=== PATIENT | male | born 1970 | race Caucasian/White ===

== ENCOUNTER 2020-02-21 14:43 | Inpatient (IN) | payer MEDICARE, BC ==
[~2020-02-21] VITALS: Ht 167.6 cm; Wt 73.0 kg
[~2020-02-21 14:43] MED LIST: AMLO5TAB15 PO; ESCI20TA51 PO; MAGN400T40 PO; OMEP20CA74 OR; POTA1080 PO; PROP80CA40 PO; TAMS0.4C36 PO
[2020-02-21 15:27] LABS: Basophils # (auto) 0.1 10 ^3/uL (0-0.2); Basophils % (auto) 1.2 % (0.0-2.0); Eosinophils # (auto) 0.5 10 ^3/uL (0-0.8); Hematocrit 49.3 % (41.0-53.0); Hemoglobin 16.5 g/dL (13.5-17.5); Lymphocytes # (auto) 1.6 10 ^3/uL (0.4-5.4); Lymphocytes % (auto) 13.8 % (10.0-50.0); Mean Corpuscular Hemoglobin 29.1 pg (28.0-32.0); Mean Corpuscular Hgb Conc. 33.5 g/dL (32.0-36.0); Mean Corpuscular Volume 86.7 fL (80.0-100.0); Monocytes # (auto) 0.9 10 ^3/uL (0-1.3); Monocytes % (auto) 7.7 % (0.0-12.0); Neutrophils # (auto) 8.4 10 ^3/uL (1.6-8.6); Neutrophils % (auto) 73.3 % (37.0-80.0); Nucleated Red Blood Cells % 0.1 %; Platelet Count (auto) 359 10^3/uL (140-450); Red Blood Cells 5.69 10^6/uL (4.5-5.90); White Blood Cell 11.4 10^3/uL (4.4-10.8)
[2020-02-21 15:45] LABS: Albumin 3.8 g/dL (3.4-5.0); Anion Gap 10 (5-15); Blood Urea Nitrogen 22 mg/dL (7-18); Calcium 8.7 mg/dL (8.5-10.1); Carbon Dioxide 22 mmol/L (21-32); Chloride 105 mmol/L (98-107); Glucose 118 mg/dL (74-106); Magnesium 2.2 mg/dL (1.6-2.6); Potassium 3.3 mmol/L (3.5-5.1); Sodium 137 mmol/L (136-145)
[2020-02-21 15:50] LABS: Alanine Aminotransferase 46 U/L (16-61); Alkaline Phosphatase 101 U/L (45-117); Aspartate Aminotransferase 25 U/L (15-37); BUN/Creatinine Ratio 15.1; Bilirubin, Total 0.6 mg/dL (0.2-1.0); GFR African American 66 mL/min; GFR Non-African American 55 mL/min; Total Protein 7.5 g/dL (6.4-8.2)
[2020-02-21 16:45] LABS: INR 1.02 (0.9-1.15); Partial Thromboplastin Time 32.3 sec (23.64-32.05)
[2020-02-21] MEDS ORDERED: ONDANSETRON HCL 4 MG/2 ML VIAL IV PRN (20:30)
[2020-02-21] MEDS ORDERED: ACETAMINOPHEN 325 MG TAB PO PRN (20:30)
[2020-02-21] MEDS ORDERED: MORPHINE SULF INJ 2 MG/ML SYRINGE 1ML IV PRN (20:30)
[2020-02-21] MEDS ORDERED: NITROGLYCERIN 0.4 MG SL TAB SL PRN ×2 (20:30)
[2020-02-21] MEDS ORDERED: MORPHINE SULFATE 4 MG/ML SYR/VIAL IV PRN (20:30)
[2020-02-21] MEDS ORDERED: ZOLPIDEM TARTRATE 5 MG TAB PO PRN (20:30)
[2020-02-21] MEDS: SODIUM CHLORIDE 0.9% 1,000 ML IV SCH (21:22)
[2020-02-21] MEDS: CARVEDILOL 3.125 MG TAB PO SCH (21:23)
[2020-02-21] MEDS ORDERED: ATORVASTATIN 20 MG TAB PO SCH (22:00)
[2020-02-21 23:30] VITALS: BP_SYST 105; BP_SYST 109; BP_DIAS 60; BP_DIAS 69
[2020-02-22 05:00] VITALS: BP_SYST 105; BP_SYST 97; BP_DIAS 57; BP_DIAS 64
[2020-02-22 07:08] LABS: Basophils # (auto) 0.1 10 ^3/uL (0-0.2); Basophils % (auto) 0.8 % (0.0-2.0); Eosinophils # (auto) 0.5 10 ^3/uL (0-0.8); Eosinophils % (auto) 6.6 % (0.0-7.0); Hematocrit 45.2 % (41.0-53.0); Hemoglobin 14.9 g/dL (13.5-17.5); Lymphocytes # (auto) 1.9 10 ^3/uL (0.4-5.4); Lymphocytes % (auto) 26.4 % (10.0-50.0); Mean Corpuscular Hemoglobin 29.2 pg (28.0-32.0); Mean Corpuscular Volume 88.5 fL (80.0-100.0); Monocytes % (auto) 13.7 % (0.0-12.0); Neutrophils # (auto) 3.7 10 ^3/uL (1.6-8.6); Neutrophils % (auto) 52.5 % (37.0-80.0); Platelet Count (auto) 260 10^3/uL (140-450); Red Blood Cells 5.11 10^6/uL (4.5-5.90); Red Cell Distribution Width 13.8 % (11.8-14.3); White Blood Cell 7.1 10^3/uL (4.4-10.8)
[2020-02-22 07:35] LABS: Potassium 3.7 mmol/L (3.5-5.1)
[2020-02-22 07:42] LABS: BUN/Creatinine Ratio 18.5; Calcium 8.3 mg/dL (8.5-10.1)
[2020-02-22 09:00] VITALS: BP 126/69
[2020-02-22] MEDS: CARVEDILOL 3.125 MG TAB PO SCH (09:47)
[2020-02-22] MEDS: SODIUM CHLORIDE 0.9% 1,000 ML IV SCH (09:50)
[2020-02-22] MEDS ORDERED: LOSARTAN POTASSIUM 25 MG TAB PO SCH (10:00)
[2020-02-22] MEDS ORDERED: CLOPIDOGREL BISULFATE 75 MG TAB PO SCH (10:00)
[2020-02-22] MEDS ORDERED: DOCUSATE SOD 100 MG CAP PO SCH (10:00)
[2020-02-22] MEDS ORDERED: ASPirin 81 mg TAB PO SCH (10:00)
[2020-02-22 13:00] VITALS: BP 120/81
[2020-02-22 16:22] VITALS: BP 120/81
[2020-02-22 17:00] VITALS: BP 105/75
== END 2020-02-22 18:14 | disposition home or self-care (01) | DRG 684 ==
LOC: ER 14:43 → TELE 14:44 → TELE-WESTW 22:57
PROVIDERS: ADMIT Hospitalist; ATTEND Hospitalist
DX: I12.9 Hypertensive chronic kidney disease with stage 1 through stage 4 chronic kidney disease, or unspecified chronic kidney disease (principal); N18.3 Chronic kidney disease, stage 3 (moderate); E87.6 Hypokalemia; F32.9 Major depressive disorder, single episode, unspecified; E78.5 Hyperlipidemia, unspecified; Z79.899 Other long term (current) drug therapy; Z88.8 Allergy status to other drugs, medicaments and biological substances; Z87.442 Personal history of urinary calculi; Z82.49 Family history of ischemic heart disease and other diseases of the circulatory system
CPT/HCPCS: 36415; 71045; 80048; 80053; 80061; 83735; 83880; 84443; 84484; 85025; 85379; 85610; 85730; 93005; G0378

== ENCOUNTER 2021-12-15 11:14 | Emergency (ER) | payer BC, MEDICARE ==
[~2021-12-15] VITALS: Ht 167.6 cm; Wt 72.6 kg
[~2021-12-15 11:14] MED LIST changes: +AMLO-489 PO; -AMLO5TAB15 PO; +ESCI-34 PO; -ESCI20TA51 PO
[2021-12-15] MEDS ORDERED: cloNIDine HCL 0.1 MG TAB PO ONE (12:00)
[2021-12-15 12:28] LABS: Basophils # (auto) 0.1 10 ^3/uL (0-0.2); Basophils % (auto) 0.6 % (0.0-2.0); Eosinophils # (auto) 0.3 10 ^3/uL (0-0.8); Eosinophils % (auto) 2.8 % (0.0-7.0); Hematocrit 41.5 % (41.0-53.0); Hemoglobin 13.9 g/dL (13.5-17.5); Lymphocytes # (auto) 0.8 10 ^3/uL (0.4-5.4); Lymphocytes % (auto) 6.9 % (10.0-50.0); Mean Corpuscular Hgb Conc. 33.5 g/dL (32.0-36.0); Mean Corpuscular Volume 83.6 fL (80.0-100.0); Monocytes # (auto) 1.3 10 ^3/uL (0-1.3); Monocytes % (auto) 10.9 % (0.0-12.0); Neutrophils # (auto) 9.3 10 ^3/uL (1.6-8.6); Neutrophils % (auto) 78.8 % (37.0-80.0); Nucleated Red Blood Cells % 0.1 %; Red Blood Cells 4.97 10^6/uL (4.5-5.90); Red Cell Distribution Width 14.5 % (11.8-14.3); White Blood Cell 11.8 10^3/uL (4.4-10.8)
[2021-12-15 12:47] LABS: Albumin 3.3 g/dL (3.4-5.0); BUN/Creatinine Ratio 15.2; Calcium 8.8 mg/dL (8.5-10.1); Magnesium 1.7 mg/dL (1.6-2.6); Potassium 3.6 mmol/L (3.5-5.1)
[2021-12-15 12:49] LABS: Urine Bacteria FEW /hpf (None Seen); Urine Blood Negative /uL (Negative); Urine Mucus FEW (None Seen); Urine Specific Gravity 1.024 (1.001-1.035); Urine Sperm PRESENT /hpf (None Seen); Urine WBC 1 /hpf (0 - 3)
[2021-12-15 12:52] LABS: Bilirubin, Total 0.4 mg/dL (0.2-1.0); Total Protein 6.8 g/dL (6.4-8.2)
[2021-12-15 13:09] VITALS: BP 123/83
== END 2021-12-15 13:27 | disposition home or self-care (01) ==
LOC: ER 11:14
DX: I16.0 Hypertensive urgency (principal); K50.90 Crohn's disease, unspecified, without complications; I10 Essential (primary) hypertension; E78.5 Hyperlipidemia, unspecified; F12.10 Cannabis abuse, uncomplicated; Z88.8 Allergy status to other drugs, medicaments and biological substances
CPT/HCPCS: 36415; 71045; 80053; 81001; 83735; 84484; 85025; 93005

== ENCOUNTER 2021-12-17 09:56 | Emergency (ER) | payer BC ==
[~2021-12-17] VITALS: Ht 167.6 cm; Wt 72.6 kg
[2021-12-17 11:08] VITALS: BP 139/98
[2021-12-17] MEDS ORDERED: TRIA50TA2 PO (11:10)
== END 2021-12-17 11:19 | disposition home or self-care (01) ==
LOC: ER 09:56
DX: I10 Essential (primary) hypertension (principal); F12.10 Cannabis abuse, uncomplicated; E78.5 Hyperlipidemia, unspecified; Z87.442 Personal history of urinary calculi

== ENCOUNTER 2025-03-20 09:25 | Inpatient (IN) | payer OTHER, MEDICARE, BC ==
[~2025-03-20] VITALS: Ht 167.6 cm; Wt 87.0 kg
[~2025-03-20 09:25] MED LIST changes: -AMLO-489 PO; +AMLO1TAB22 PO; -ESCI-34 PO; +ESCI1TAB37 PO; -TAMS0.4C36 PO; +TAMS0.4C39 PO; +TRIA75TA11 PO
[2025-03-20 10:05] VITALS: PULSE 105; RESP 14; O2SAT 97
[2025-03-20] MEDS: LABETALOL HCL 20 MG/4 ML VL IV ONE (10:08)
--- NOTE | 2025-03-20 10:08 | ED.PDOC ---
History of Present Illness HPI Comments 54 y.o male with PMHx of HTN and Crohn's, presents to the ED for an evaluation of high blood pressure associated with a generalized headache and tingling sensation to the left hand x 1 day. Patient reports being seen [facility] yesterday, was told blood pressure was elevated and states today upon waking up, pressure increased to 220 systolic. Patient denies any chest pain, SOB, nausea, vomiting, chills, or fevers. Patient's blood pressure reads 176/115 upon triage assessment. Patient denies tobacco or substance use. Occasional use of alcohol. Chief Complaint: High Blood Pressure Time Seen by MD: 09:42 Primary Care Provider: MADDIE Minor Notes: Nurses Notes, Medications, Allergies Allergies: Coded Allergies: Mercaptopurine (Verified Allergy, Unknown, 02/21/20) Home Meds Active Scripts Hydrochlorothiazide W/Triamter (Hctz/Triamterene) 1 Tab Tab, 1 TAB PO DAILY for 20 Days, #20 TAB Prov:LUIS A TADEO 12/17/21 Reported Medications Amlodipine Besylate (Amlodipine Besylate) 5 Mg Tab, 1 TAB PO DAILY, #30 TAB 5 Refills 08/02/16 Propranolol Hcl (Inderal La) 80 Mg Cap, 80 MG PO DAILY, #1 CAP 08/02/16 Tamsulosin Hcl (Tamsulosin Hcl) 0.4 Mg Cap, 1 CAP PO DAILY, #30 CAP 1 Refill 08/02/16 Potassium Citrate (Potassium Citrate) 1,080 Mg Tab, 2 TAB PO TID, #360 TAB 2 Refills 08/02/16 Magnesium Oxide (MAGNESIUM OXIDE) 400 Mg Tab, 1 TAB PO BID, #60 TAB 2 Refills 08/02/16 Escitalopram Oxalate (ESCITALOPRAM OXALATE) 20 Mg Tab, 20 MG PO, TAB 08/02/16 Omeprazole (PRILOSEC) 20 Mg Cap, 20 MG OR DAILY, CAP 08/02/16 Information Source: Patient Mode of Arrival: Ambulatory Severity: Moderate Timing: Days (1) Duration: Since onset Past Medical History PAST MEDICAL HISTORY: Anxiety, Depression, High Lipids, HTN, Kidney Stones Surgical History: Appendectomy Family History Family History: Family hx of Cancer, Family hx of heart nuria, Family hx of HTN Social History Smoker: Non-Smoker Alcohol: Rarely Drugs: Marijuana Lives In: Home Constitutional: denies: chills, diaphoresis, fatigue, fever, malaise, sweats, weakness, others EENTM: denies: blurred vision, double vision, ear bleeding, ear discharge, ear drainage, ear pain, ear ringing, eye pain, eye redness, hearing loss, mouth pain, mouth swelling, nasal discharge, nose bleeding, nose congestion, nose pain, photophobia, tearing, throat pain, throat swelling, voice changes, others Respiratory: denies: cough, hemoptysis, orthopnea, SOB at rest, shortness of breath, SOB with excertion, stridor, wheezing, others Cardiovascular: denies: chest pain, dizzy spells, diaphoresis, Dyspnea on exertion, edema, irregular heart beat, left arm pain, lightheadedness, palpitations, PND, syncope, others Gastrointestinal: denies: abdomen distended, abdominal pain, blood streaked bowels, constipated, diarrhea, dysphagia, difficulty swallowing, hematemesis, me elly, nausea, poor appetite, poor fluid intake, rectal bleeding, rectal pain, vomiting, others Genitourinary: denies: burning, dysuria, flank pain, frequency, hematuria, incontinence, penile discharge, penile sore, pain, testicle pain, testicle swelling, urgency, others Neurological: reports: headache, tingling (left hand); denies: dizziness, fainting, left sided numbness, left sided weakness, numbness, paresthesia, pre-existing deficit, right sided numbness, right sided weakness, seizure, speech problems, tremors, weakness, others Musculoskeletal: denies: back pain, gout, joint pain, joint swelling, muscle pain, muscle stiffness, neck pain, others Integumetry: denies: bruises, change in color, change in hair/nails, dryness, laceration, lesions, lumps, rash, wounds, others Allergic/Immunocompromised: denies: Difficulty Healing, Frequent Infections, Hives, Itching, others Hematologic/Lymphatic: denies: anemia, blood clots, easy bleeding, easy bruising, swollen glands, others Endocrine: denies: excessive hunger, excessive sweating, excessive thirst, excessive urination, flushing, intolerance to cold, intolerance to heat, unexplained weight gain, unexplained weight loss, others Psychiatric: denies: anxiety, bipolar disorder, depression, hopeless, panic disorder, schizophrenia, sleepless, suicidal, others All Other Systems: Reviewed and Negative Physical Exam General Appearance: Moderate Distress HEENT: Normal ENT Inspection, Pharynx Normal, TMs Normal Neck: Full Range of Motion, Non-Tender, Normal, Normal Inspection Respiratory: Chest Non-Tender, Lungs Clear, No Accessory Muscle Use, No Respiratory Distress, Normal Breath Sounds Cardiovascular: No Edema, No JVD, No Murmur, No Gallop, Normal Peripheral Pulses, Tachycardia Breast Exam: Deferred Gastrointestinal: No Organomegaly, Non Tender, No Pulsatile Mass, Normal Bowel Sounds, Soft Genitalia: Deferred Pelvic: Deferred Rectal: Deferred Extremities: No calf tenderness, Normal capillary refill, Normal inspection, Normal range of motion, Non-tender, No pedal edema Musculoskeletal : Apperance: Normal 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 Was a procedure done?: No EKG EKG : Cardiac Rhythm: ST Differential Dx Considerations may include: Hypertension Crisis, Tension headaches, Migraine, Clustered Headache, Anxiety, Hypertensive Encephalopathy, TIA, CVA X-Ray, Labs, Meds, VS Vital Signs Date Time Temp Pulse Resp B/P (MAP) Pulse Ox O2 Delivery O2 Flow Rate FiO2 03/20/25 10:08 105 137/91 03/20/25 10:05 105 14 97 Room Air* 0 21 03/20/25 10:05 98.0 105 14 137/91 (106) 97 98.0 03/20/25 09:55 107 03/20/25 09:43 98.0 115 18 154/113 (127) 95 98.0 Lab Test 03/20/25 10:12 Range/Units White Blood Count 15.5 H 4.4-10.8 10^3/uL Red Blood Count 4.97 4.5-5.90 10^6/uL Hemoglobin 15.3 13.5-17.5 g/dL Hematocrit 44.2 41.0-53.0 % Mean Corpuscular Volume 89.1 80.0-100.0 fL Mean Corpuscular Hemoglobin 30.9 28.0-32.0 pg Mean Corpuscular Hemoglobin Concent 34.7 32.0-36.0 g/dL Red Cell Distribution Width 14.3 11.8-14.3 % Platelet Count 335 140-450 10^3/uL Mean Platelet Volume 8.1 6.9-10.8 fL Neutrophils (%) (Auto) 87.9 H 37.0-80.0 % Lymphocytes (%) (Auto) 2.7 L 10.0-50.0 % Monocytes (%) (Auto) 9.0 0.0-12.0 % Eosinophils (%) (Auto) 0.3 0.0-7.0 % Basophils (%) (Auto) 0.1 0.0-2.0 % Neutrophils # (Auto) 13.7 H 1.6-8.6 10 ^3/uL Lymphocytes # (Auto) 0.4 0.4-5.4 10 ^3/uL Monocytes # (Auto) 1.4 H 0-1.3 10 ^3/uL Eosinophils # (Auto) 0 0-0.8 10 ^3/uL Basophils # (Auto) 0 0-0.2 10 ^3/uL Nucleated Red Blood Cells 0.0 % Sodium Level 140 136-145 mmol/L Potassium Level 3.9 3.5-5.1 mmol/L Chloride Level 108 H 98-107 mmol/L Carbon Dioxide Level 23 20-31 mmol/L Anion Gap 9 5-15 Blood Urea Nitrogen 10 9-23 mg/dL Creatinine 0.91 0.700-1.30 mg/dL Glomerular Filtration Rate Calc 100 >90 mL/min BUN/Creatinine Ratio 11.0 10.0-20.0 Serum Glucose 97 74-106 mg/dL Calcium Level 10.7 H 8.7-10.4 mg/dL Troponin I High Sensitivity 8 </=54 ng/L Patient alert. Complaining of feeling weak. Blood pressure elevated. Vitals stable. WBC slightly elevated. Saturation pristine on room air. Was given labetalol. EKG reviewed does show tachycardia. Explained to the patient. Continue monitoring. Time of 1ST Reevaluation: 10:07 Reevaluation 1ST: Unchanged Patient Education/Counseling: Diagnosis, Treatment, Prognosis Family Education/Counseling: Diagnosis, Treatment, Prognosis Departure 1 Departure Time of Disposition: 11:18 Impression: Primary Impression: Hypertensive emergency Disposition: 09 ADMITTED INPATIENT Admit to: Med Surg Condition: Guarded Critical Care Note Critical Care Time?: Yes (90 min-critical care time only) Critical care comment: Hypotension continue monitor Stability Stability form required: No I personally scribed for MATTEO NICHOLAS MD ([email or web address]) on 03/20/25 at 10:08. Electronically submitted by Cari Carpenter ([facility]). MATTEO NICHOLAS MD Mar 20, 2025 10:08
--- NOTE | 2025-03-20 10:16 | ECG ---
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
[2025-03-20 10:23] LABS: Basophils # (auto) 0 10 ^3/uL (0-0.2); Basophils % (auto) 0.1 % (0.0-2.0); Eosinophils # (auto) 0 10 ^3/uL (0-0.8); Eosinophils % (auto) 0.3 % (0.0-7.0); Hematocrit 44.2 % (41.0-53.0); Hemoglobin 15.3 g/dL (13.5-17.5); Lymphocytes # (auto) 0.4 10 ^3/uL (0.4-5.4); Lymphocytes % (auto) 2.7 % (10.0-50.0); Mean Corpuscular Hemoglobin 30.9 pg (28.0-32.0); Mean Corpuscular Hgb Conc. 34.7 g/dL (32.0-36.0); Mean Corpuscular Volume 89.1 fL (80.0-100.0); Monocytes # (auto) 1.4 10 ^3/uL (0-1.3); Neutrophils # (auto) 13.7 10 ^3/uL (1.6-8.6); Neutrophils % (auto) 87.9 % (37.0-80.0); Platelet Count (auto) 335 10^3/uL (140-450); Red Blood Cells 4.97 10^6/uL (4.5-5.90); Red Cell Distribution Width 14.3 % (11.8-14.3); White Blood Cell 15.5 10^3/uL (4.4-10.8)
[2025-03-20 10:31] LABS: Potassium 3.9 mmol/L (3.5-5.1); Sodium 140 mmol/L (136-145)
[2025-03-20 10:32] LABS: Anion Gap 9 (5-15); Carbon Dioxide 23 mmol/L (20-31)
[2025-03-20 10:37] LABS: Glucose 97 mg/dL (74-106)
[2025-03-20 10:38] LABS: Blood Urea Nitrogen 10 mg/dL (9-23)
[2025-03-20 10:39] LABS: Calcium 10.7 mg/dL (8.7-10.4); Chloride 108 mmol/L (98-107)
--- NOTE | 2025-03-20 12:02 | DVH ---
CHEST RADIOGRAPH Indication: r/o pna Technique: Single frontal view of the chest was obtained COMPARISON: CHEST PORTABLE on DOS: 12/15/21 FINDINGS: Lines and Tubes: None Lungs: Clear Pleura: No effusion. No pneumothorax. Cardiomediastinal contours: Unremarkable Bones: Unremarkable IMPRESSION: No acute disease.
[2025-03-20 12:08] LABS: Urine Bacteria None Seen /hpf (None Seen)
[2025-03-20 12:25] LABS: Urine Blood Negative /uL (Negative); Urine Clarity Clear (Clear); Urine Color Colorless (Yellow); Urine Protein, UAD Negative (Negative); Urine Specific Gravity 1.006 (1.001-1.035); Urine Squamous Epithelial Cell None Seen /hpf (<5); Urine Urobilinogen Normal (Negative); Urine WBC 1 /HPF (0-3)
[2025-03-20] MEDS: SODIUM CHLORIDE 0.9% 1,000 ML IV ONE (12:26)
[2025-03-20 12:32] LABS: Cannabinoid Screen, Urine Pos (NEGATIVE)
[2025-03-20 12:44] LABS: Amphetamine Screen, Urine Neg (NEGATIVE); Barbiturate Scree,Urine Neg (NEGATIVE); Benzodiazephine Screen, Urine Neg (NEGATIVE); Cocaine Screen, Urine Neg (NEGATIVE); Opiate Scree,Urine Neg (NEGATIVE); Phencyclidine Screen, Urine Neg (NEGATIVE)
[2025-03-20] MEDS ORDERED: LOSA-534 PO (13:06)
[2025-03-20] MEDS ORDERED: LAMO25TA27 PO (13:06)
[2025-03-20] MEDS ORDERED: ATOR20TA50 PO (13:06)
[2025-03-20] MEDS ORDERED: UPAD30TA PO (13:06)
[2025-03-20] MEDS ORDERED: ICOS1CAP3 PO (13:06)
[2025-03-20] MEDS ORDERED: ONDANSETRON HCL 4 MG/2 ML VIAL IV PRN (13:15)
[2025-03-20] MEDS ORDERED: NITROGLYCERIN 0.4 MG SL TAB SL PRN (13:15)
[2025-03-20] MEDS ORDERED: MORPHINE SULFATE 4 MG/ML SYR/VIAL IV PRN (13:15)
--- NOTE | 2025-03-20 13:20 | DVHHP2 ---
History of Present Illness Reason for Visit: High blood pressure History of Present Illness Torrey Mack is a 54-year-old male with past medical history of hypertension, hyperlipidemia, anxiety, depression, kidney stones, Crohn's, tonsillectomy, and lithotripsy who presents to the ED with a blood pressure this morning, headache, nausea, abdominal discomfort, left hand tingling, neck pain, chills, and shoulder pain x1 day. Patient states that the headache is 4/10 pressure-like and constant. Patient states that he checks his blood pressure regularly and states that his systolics was over 220s this morning. He states that he checks it on a regimen and [facility] He states that he is compliant with his medications. He also states that he occasionally drinks, quit smoking, but does use marijuana. Patient also reported that his neck pain and shoulder pain has been going on for 1 month. He states that he had seen a chiropractor to get it adjusted with no relief. Patient's Alisa at the bedside. She also reported that the patient has been having abdominal discomfort for a month. Patient denies any chest pain, fever, recent injury or trauma, recent ingestion of spoiled food, recent sick contacts, recent travels, shortness of breath, vomiting, or diarrhea. Cardiovascular: HTN, hyperipidemia Psych: Anxiety, Depression Past Medical History Nephrolithiasis Crohn's disease Past Surgical History: Other (Lithotripsy), Tonsillectomy Family History: Cancer, Hypertension, Other (Dad with heart disease and hypertension. Mom with leukemia cancer.) Smoke: Quit ALCOHOL: occassional Drugs: Marijuana Lives: with Family Domestic Violence: Neg Review of Systems Constitutional: Yes: Chills, Other (Headache) Gastrointestinal: Other (Abdominal discomfort) Allergies: Coded Allergies: Mercaptopurine (Verified Allergy, Unknown, 02/21/20) Medications Current Medications Medications Dose Ordered Sig/Delio Route Start Time Stop Time Status Last Admin Dose Admin Piperacillin Sod/ Tazobactam Sod 100 ml @ 25 mls/hr Q8HR IV 03/20/25 13:15 UNV Acetaminophen/ Hydrocodone Bitart 1 tab Q4HP PRN PO 03/20/25 13:15 UNV Ondansetron HCl 4 mg Q4HP PRN IV 03/20/25 13:15 UNV Acetaminophen 650 mg Q6HP PRN PO 03/20/25 13:15 UNV Morphine Sulfate 2 mg Q4HPRN PRN IV 03/20/25 13:15 UNV Nitroglycerin 0.4 mg Q5MINP PRN SL 03/20/25 13:15 UNV Morphine Sulfate 2 mg Q30M PRN IV 03/20/25 13:15 UNV Amlodipine Besylate 5 mg DAILY PO 03/21/25 10:00 UNV Tamsulosin HCl 0.4 mg DAILY PO 03/21/25 10:00 UNV Patient Own Medication 1 tab DAILY PO 03/21/25 10:00 UNV Patient Own Medication 1 tab BID PO 03/20/25 22:00 UNV Patient Own Medication 20 mg DAILY OR 03/21/25 10:00 UNV Patient Own Medication 80 mg DAILY PO 03/21/25 10:00 UNV Exam Vital Signs Vital Signs Date Time Temp Pulse Resp B/P (MAP) Pulse Ox O2 Delivery O2 Flow Rate FiO2 03/20/25 12:19 98.8 108 16 129/95 (106) 97 98.8 03/20/25 10:05 Room Air* 0 21 General Appearance: Alert, Oriented X3, Cooperative, mild distress HEENT: Atraumatic, PERRLA, EOMI, Mucous membr. moist/pink Respiratory: Normal air movement Cardiovascular: Normal S1, Normal S2 Abdominal: Normal bowel sounds, Soft Extremities: Normal pulses Skin: No significant lesion Neuro: Normal gait, Normal speech, Strength at 5/5 X4 ext, Normal tone, Sensation intact Psych/Mental Status: Mental status NL, Mood NL Labs/Xrays Labs Test 03/20/25 11:55 03/20/25 11:16 03/20/25 10:12 Range/Units Urine Color Colorless Yellow Urine Clarity Clear Clear Urine pH 5.0 5.0-9.0 Urine Specific Lucas 1.006 1.001-1.035 Urine Protein Negative Negative Urine Ketones Negative Negative Urine Blood Negative Negative /uL Urine Nitrite Negative Negative Urine Bilirubin Negative Negative Urine Urobilinogen Normal Negative mg/dL Urine Leukocyte Esterase Negative Negative /uL Urine RBC <1 0 - 3 /hpf Urine Microscopic WBC 1 0-3 /HPF Urine Squamous Epithelial Cells None seen <5 /hpf Urine Bacteria None seen None Seen /hpf Urine Glucose Normal Normal mg/dL Urine Opiates Screen Neg NEGATIVE Urine Fentanyl Screen Neg NEGATIVE Urine Barbiturates Screen Neg NEGATIVE Urine Phencyclidine Screen Neg NEGATIVE Urine Amphetamines Screen Neg NEGATIVE Urine Benzodiazepines Screen Neg NEGATIVE Urine Cocaine Screen Neg NEGATIVE Urine Cannabinoids Screen Pos NEGATIVE Troponin I High Sensitivity 12 </=54 ng/L White Blood Count 15.5 H 4.4-10.8 10^3/uL Red Blood Count 4.97 4.5-5.90 10^6/uL Hemoglobin 15.3 13.5-17.5 g/dL Hematocrit 44.2 41.0-53.0 % Mean Corpuscular Volume 89.1 80.0-100.0 fL Mean Corpuscular Hemoglobin 30.9 28.0-32.0 pg Mean Corpuscular Hemoglobin Concent 34.7 32.0-36.0 g/dL Red Cell Distribution Width 14.3 11.8-14.3 % Platelet Count 335 140-450 10^3/uL Mean Platelet Volume 8.1 6.9-10.8 fL Neutrophils (%) (Auto) 87.9 H 37.0-80.0 % Lymphocytes (%) (Auto) 2.7 L 10.0-50.0 % Monocytes (%) (Auto) 9.0 0.0-12.0 % Eosinophils (%) (Auto) 0.3 0.0-7.0 % Basophils (%) (Auto) 0.1 0.0-2.0 % Neutrophils # (Auto) 13.7 H 1.6-8.6 10 ^3/uL Lymphocytes # (Auto) 0.4 0.4-5.4 10 ^3/uL Monocytes # (Auto) 1.4 H 0-1.3 10 ^3/uL Eosinophils # (Auto) 0 0-0.8 10 ^3/uL Basophils # (Auto) 0 0-0.2 10 ^3/uL Nucleated Red Blood Cells 0.0 % Sodium Level 140 136-145 mmol/L Potassium Level 3.9 3.5-5.1 mmol/L Chloride Level 108 H 98-107 mmol/L Carbon Dioxide Level 23 20-31 mmol/L Anion Gap 9 5-15 Blood Urea Nitrogen 10 9-23 mg/dL Creatinine 0.91 0.700-1.30 mg/dL Glomerular Filtration Rate Calc 100 >90 mL/min BUN/Creatinine Ratio 11.0 10.0-20.0 Serum Glucose 97 74-106 mg/dL Calcium Level 10.7 H 8.7-10.4 mg/dL EXAM: CT HEAD WITHOUT CONTRAST HISTORY: tingling in hands COMPARISON: None TECHNIQUE: Noncontrast axial CT images of the head were performed. Sagittal and coronal reformatted images were obtained. This CT exam was performed using 1 or more of the following dose reduction techniques: Automated exposure control, adjustment of the mA and/or kv according to patient size, or the use of iterative reconstruction techniques. Radiation Dose: CTDI volume is 56.85 mGy. Dose-length product is 909.66 mGy*cm FINDINGS: No intracranial hemorrhage, mass, midline shift, hydrocephalus, or evidence of acute large vessel infarct. There is mucosal thickening of the bilateral ethmoid and sphenoid sinuses. The bilateral mastoid air cells and middle ear spaces are clear. No cranial fracture or scalp edema. There are small calcifications of the left parietal scalp. IMPRESSION: 1. No acute intracranial process. 2. Mild paranasal sinus disease. CHEST RADIOGRAPH Indication: r/o pna Technique: Single frontal view of the chest was obtained COMPARISON: CHEST PORTABLE on DOS: 12/15/21 FINDINGS: Lines and Tubes: None Lungs: Clear Pleura: No effusion. No pneumothorax. Cardiomediastinal contours: Unremarkable Bones: Unremarkable IMPRESSION: No acute disease. Assessment/Plan Assessment/Plan Assessment Hypertensive urgency Intractable headache with left hand tingling Intractable neck and shoulder pain Leukocytosis rule out sepsis Hypercalcemia Sinus tachycardia Alcohol use Ex-smoker Marijuana use Mild paranasal sinus disease Tonsillar hypertrophy Cervical degenerative disc disease with mild spinal canal stenosis significant left neural foraminal stenosis at C5-C6 History of hypertension History of hyperlipidemia History of anxiety History of depression History of nephrolithiasis History of Crohn's disease History of lithotripsy History of tonsillectomy Plan Admit to [facility] Antihypertensives IV antibiotics-Zosyn Beta-blockers given ED EKG noted Troponin negative x2 UA UDS Chest x-ray Lactic level Blood cultures Urine cultures CT head/neck/chest/abdomen and pelvis IV fluid bolus Diet Home medications reconciled DVT prophylaxis-not indicated patient ambulating PUD prophylaxis-PPIs Discussed plan of care with patient, patient's , and nurse Spinal consult Rounding hospitalist consider MRI neck or follow up on an outpatient basis Plan discussed with: Patient, Spouse My Orders Orders - 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 Procedure Category Date Status Time Chest Xray 1 View XY 6/5/25 Resulted 11:30 Sodium Chloride 0.9% PHA 03/20/25 In Process 12:30 Piperacillin-Tazob PHA 03/20/25 Logged 3.375gm (Zosyn 3.375g 13:15 Admit ADMIT 03/20/25 Transmitted 13:03 Allergies CAS 03/20/25 In Process 13:03 Code Status CODE 03/20/25 Transmitted 13:03 Hydrocodone-Acet PHA 03/20/25 Logged 5/325mg Tab ([place] 13:15 Ondansetron Hcl PHA 03/20/25 Logged (Zofran) 13:15 Complete Blood Count LAB 03/21/25 Verified 04:00 Comprehensive LAB 03/21/25 Verified Metabolic Panel 04:00 Cardiac DIET 03/20/25 Transmitted Diet-2gna,Lofat,Lochol Lunch Acetaminophen Tablet PHA 03/20/25 Logged (Tylenol Tablet) 13:15 Morphine Sulfate PHA 03/20/25 Logged Injection 13:15 Sequential CAS 03/20/25 In Process Compression Device Nitroglycerin PHA 03/20/25 Logged Sublingual (Ntrostat 13:15 Morphine Sulfate PHA 03/20/25 Logged Injection 13:15 Stat Ekg For Chest [facility] 03/20/25 In Process Pain 13:03 Notify Of Changes [facility] 03/20/25 In Process From Base 13:03 Client Advisor For [facility] 03/20/25 In Process 24 Hours 13:03 Emergency Dysrhythmia [facility] 03/20/25 In Process Protocol 13:03 Rhythm Strips Once [facility] 03/20/25 In Process Every Shift 13:03 Oxygen By Nasal RT 03/20/25 Transmitted Cannula 13:03 Lactic Acid W/ Reflex LAB 03/20/25 Logged Order 13:03 Blood Culture MONIE 03/20/25 Logged 13:03 Urine Bacterial MONIE 03/20/25 Logged Culture 13:03 Amlodipine Tablet PHA 03/21/25 Logged (Norvasc Tablet) 10:00 Tamsulosin PHA 03/21/25 Logged Hydrochloride (Flomax) 10:00 (NF) PHA 03/21/25 Logged Hydrochlorothiazide 10:00 (Nf) Magnesium Oxide PHA 03/20/25 Logged 22:00 (Nf) Omeprazole PHA 03/21/25 Logged (Prilosec) 10:00 (Nf) Propranolol Hcl PHA 03/21/25 Logged (Inderal La) 10:00 Atorvastatin (Lipitor) PHA 03/21/25 Verified 10:00 Losartan Tablet PHA 03/21/25 Verified (Cozaar Tablet) 10:00 (Nf) Icosapent Ethyl PHA 03/20/25 Verified 22:00 (Nf) Lamotrigine PHA 03/21/25 Verified 10:00 (Nf) Upadacitinib PHA 03/21/25 Verified (Rinvoq) 10:00 Date of Service: Mar 20, 2025 Billing Provider: SHAVON GALAN Common Visit Codes: [id number] INP/OBS CARE (HIGH) SHAVON GALAN Mar 20, 2025 13:20
--- NOTE | 2025-03-20 13:51 | DVH ---
EXAM: CT NECK WITHOUT CONTRAST HISTORY: neck pain, upper extremity tingling COMPARISON: None TECHNIQUE: Helical CT images of the neck were performed without contrast. Sagittal and coronal reform atted images were obtained. This CT exam was performed using one or more of the following dose reduct ion techniques: Automated exposure control, adjustment of the mA and/or kV according to patient size, or use of iterative reconstruction technique. Radiation Dose Information: CT Dose: CTDI volume is 25 .32 mGy. Dose-length product is 746.19 mGy*cm. FINDINGS: No radiologically significant cervical adenopathy or mass. There is hypertrophy of the margy corey and lingual tonsils with narrowing of the upper airway. The vocal cords are symmetric. No abnorm al thickening of the epiglottis. The noncontrast parotid glands, submandibular glands, and thyroid ar e unremarkable. There is mucosal thickening in the bilateral maxillary, bilateral ethmoid, and left s phenoid sinuses and mastoid air cells are clear. The lung apices are clear. Bovine aortic arch is inc identally noted. There is cervical degenerative disc disease, greatest at C5-C6, with significant love ral foraminal stenosis on the left at C5-C6. There is mild spinal canal stenosis C5-C6. IMPRESSION: 1. Tonsillar hypertrophy with narrowing of the upper airway. 2. Mild paranasal sinus disease. 3. No radiologically significant cervical lymphadenopathy or mass. 4. Cervical degenerative disc disease with mild spinal canal stenosis and significant left neural for aminal stenosis at C5-C6. If the patient complains of upper extremity radicular symptoms, consider f ollow-up noncontrast MRI of the cervical spine for further evaluation on an outpatient basis.
--- NOTE | 2025-03-20 13:53 | DVH ---
EXAM: CT HEAD WITHOUT CONTRAST HISTORY: tingling in hands COMPARISON: None TECHNIQUE: Noncontrast axial CT images of the head were performed. Sagittal and coronal reformatted i mages were obtained. This CT exam was performed using 1 or more of the following dose reduction techn iques: Automated exposure control, adjustment of the mA and/or kv according to patient size, or the u se of iterative reconstruction techniques. Radiation Dose: CTDI volume is 56.85 mGy. Dose-length product is 909.66 mGy*cm FINDINGS: No intracranial hemorrhage, mass, midline shift, hydrocephalus, or evidence of acute large vessel inf arct. There is mucosal thickening of the bilateral ethmoid and sphenoid sinuses. The bilateral mastoi d air cells and middle ear spaces are clear. No cranial fracture or scalp edema. There are small calc ifications of the left parietal scalp. IMPRESSION: 1. No acute intracranial process. 2. Mild paranasal sinus disease.
[2025-03-20 13:58] LABS: Lactic Acid w/Reflex 2.1 mmol/L (0.4-2.0)
[2025-03-20] MEDS: PIPERACILLIN-TAZOB 3.375GM 100 ML IV SCH (14:07)
--- NOTE | 2025-03-20 14:12 | DVH ---
Exam: CT CHST AB PEL WO CON-NO IV/ORAL History: sob Comparison Study: None Technique: Multidetector spiral CT of the chest, abdomen and pelvis was performed from lower neck to pubic symphysis Axial, coronal and sagittal multiplanar reformats were performed by the technologist on a separate workstation. Radiation Dose : Chest/Abdomen/Pelvis: CTDIvol 12.25 mGy, DLP 844.72 mGy*cm. Findings: Lower neck: Normal thyroid. Lungs: Mild ground-glass opacity anterior right upper lobe. Multiple less than 6 mm nodules in the ri ght. Tree-in-bud nodularity in the right lower lung. Heart/Vascular Structures: Normal heart size. No pericardial effusion. Lymph Nodes: No adenopathy Pleura: No pleural effusion or significant pneumothorax. Liver: The liver is normal in size. No focal lesions. Normal hepatic vascular enhancement. Gallbladder and Biliary Tree: Unremarkable Spleen: Unremarkable Pancreas: The pancreas is normal in appearance without focal lesions or abnormal enhancement. Adrenal Glands: Unremarkable Kidneys: Moderate right hydronephrosis and hydroureter with an obstructing calculus in the distal rig ht ureter measuring up to 7 x 9 mm. Additional punctate calcification in the mid right ureter. Few ri ght renal calculi measuring up to 2 mm. Left renal calculus measuring up to 2 mm. No left hydronephro sis. Bladder: Unremarkable Bowel: The stomach is grossly normal in appearance. Postsurgical changes in the small bowel and cecum . No evidence of bowel obstruction. Appendix not identified. Ascites: Absent Lymphadenopathy: Mildly prominent but subcentimeter mesenteric lymph nodes. Abdominal Wall and Mesentery: Unremarkable. Vasculature: The visualized abdominal aorta is normal in size and caliber. Abdominal and pelvic vess els demonstrate normal enhancement. Pelvic Organs: Unremarkable Musculoskeletal: No aggressive focal bony lesions, acute fractures or dislocation. IMPRESSION: 1. Ground-glass opacity with diffuse micronodularity including tree-in-bud nodularity in the right jared ng, likely infectious / inflammatory. Clinical correlation and continued follow-up is recommended. Next chest CT in 3 months. 2. Moderate right hydronephrosis and hydroureter with obstructing calculus in the distal right ureter measuring up to 7 x 9 mm. Other bilateral renal calculi noted. Urology evaluation is recommended. 3. Postsurgical changes in the bowel and cecum. No evidence of bowel obstruction. Mesenteric lymphade nopathy is nonspecific. HS:Y
[2025-03-20] MEDS ORDERED: hydrALAZINE HCL 20 MG/ML VL IV PRN (17:45)
[2025-03-20 17:48] VITALS: BP 133/89; PULSE 86; PULSE 87; RESP 16; TEMP 98.8; O2SAT 97; O2SAT 99
[2025-03-20] MEDS: ICOSAPENT ETHYL 1 GM PO SCH (18:00)
[2025-03-20] MEDS: TAMSULOSIN HYDROCHLORIDE 0.4 MG CAP PO SCH (18:10)
[2025-03-20 20:00] VITALS: PULSE 79; PULSE 92; RESP 92; O2SAT 97
[2025-03-20 21:00] VITALS: BP 134/88; PULSE 92; RESP 19; TEMP 98.2; O2SAT 97
[2025-03-20] MEDS: ATORVASTATIN 20 MG TAB PO SCH (21:42)
[2025-03-20] MEDS: MAGNESIUM OXIDE 400 MG TAB PO SCH (21:43)
[2025-03-21] VITALS (8 sets, daily range): BP systolic 129–154; BP diastolic 84–96; PULSE 72–100; RESP 18; TEMP 97.5–99.2; O2SAT 93–100
[2025-03-21] MEDS: MORPHINE SULFATE 4 MG/ML SYR/VIAL IV PRN (03:29)
[2025-03-21 07:28] LABS: Basophils # (auto) 0 10 ^3/uL (0-0.2); Basophils % (auto) 0.2 % (0.0-2.0); Eosinophils # (auto) 0.1 10 ^3/uL (0-0.8); Eosinophils % (auto) 0.8 % (0.0-7.0); Hematocrit 40.9 % (41.0-53.0); Hemoglobin 14.1 g/dL (13.5-17.5); Lymphocytes # (auto) 0.6 10 ^3/uL (0.4-5.4); Lymphocytes % (auto) 6.6 % (10.0-50.0); Mean Corpuscular Hgb Conc. 34.5 g/dL (32.0-36.0); Mean Corpuscular Volume 89.7 fL (80.0-100.0); Monocytes # (auto) 1.2 10 ^3/uL (0-1.3); Monocytes % (auto) 13.9 % (0.0-12.0); Neutrophils # (auto) 6.7 10 ^3/uL (1.6-8.6); Neutrophils % (auto) 78.5 % (37.0-80.0); Platelet Count (auto) 246 10^3/uL (140-450); Red Blood Cells 4.56 10^6/uL (4.5-5.90); Red Cell Distribution Width 14.3 % (11.8-14.3); White Blood Cell 8.6 10^3/uL (4.4-10.8)
[2025-03-21 07:43] LABS: Alanine Aminotransferase 30 U/L (7-40); Albumin 4.7 g/dL (3.2-4.8); Alkaline Phosphatase 79 U/L (46-116); Anion Gap 7 (5-15); Aspartate Aminotransferase 25 U/L (13-40); Blood Urea Nitrogen 11 mg/dL (9-23); Carbon Dioxide 26 mmol/L (20-31); Glucose 103 mg/dL (74-106); Potassium 3.9 mmol/L (3.5-5.1); Sodium 141 mmol/L (136-145); Total Protein 6.7 g/dL (5.7-8.2)
[2025-03-21 07:44] LABS: Bilirubin, Total 0.9 mg/dL (0.2-1.0)
[2025-03-21 07:47] LABS: Chloride 108 mmol/L (98-107)
[2025-03-21] MEDS: lamoTRIgine 25 MG TAB PO SCH (10:00)
[2025-03-21] MEDS: UPADACITINIB PO SCH (10:00)
[2025-03-21] MEDS: LOSARTAN POTASSIUM 50 MG TAB PO SCH (10:00)
[2025-03-21] MEDS: TRIAMTER PO SCH (10:00)
[2025-03-21] MEDS: HYDROCHLOROTHIAZIDE PO SCH (10:00)
[2025-03-21] MEDS: amLODIPine BESYLATE 5 MG TAB PO SCH (10:00)
[2025-03-21] MEDS: PANTOPRAZOLE 40 MG TAB PO SCH (10:00)
[2025-03-21] MEDS: HYDROcodone-ACET 5/325MG TAB PO PRN (10:30)
--- NOTE | 2025-03-21 11:32 | DVHINCON2 ---
Consultation - Spinal Surgery Date Seen: Mar 21, 2025 Referring Physician Referring Physician Attending Doctor: Karen Torres Resident Nathanael Duran MD Reason for Consultation Reason for Visit: High blood pressure-- spine consult for History of Present Illness History of Present Illness History of Present Illness Torrey Mack is a 54-year-old male with past medical history of hypertension, hyperlipidemia, anxiety, depression, kidney stones, Crohn's, tonsillectomy, and lithotripsy who presents to the ED with a blood pressure this morning, headache, nausea, abdominal discomfort, left hand tingling, neck pain, chills, and shoulder pain x1 day. Patient states that the headache is 4/10 pressure-like an d constant. Patient states that he checks his blood pressure regularly and states that his systolics was over 220s this morning. He states that he checks it on a regimen and the [facility] He states that he is compliant with his medications. He also states that he occasionally drinks, quit smoking, but does use marijuana. Patient also reported that his neck pain and shoulder pain has been going on for 1 month. He states that he had seen a chiropractor to get it adjusted with no relief. Patient's Alisa at the bedside. She also reported that the patient has been having abdominal discomfort for a month. Patient denies any chest pain, fever, recent injury or trauma, recent ingestion of spoiled food, recent sick contacts, recent travels, shortness of breath, vomiting, or diarrhea. Spine history: Patient has use a chiropractor frequently to adjust his neck over the past many Years Patient states that he has history of migraines, weakness to his hands i ntermittently. 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 Retrieve any spine surgeries or interventions in the past except for chiropractic work Past Medical/Surgical History Past Medical/Surgical History Cardiovascular: HTN, hyperipidemia Psych: Anxiety, Depression Past Medical History Nephrolithiasis Crohn's disease Past Surgical History: Other (Lithotripsy), Tonsillectomy Family and Social History Family and Social History Family History: Cancer, Hypertension, Other (Dad with heart disease and hypertension. Mom with leukemia cancer.) Smoke: Quit ALCOHOL: occassional Drugs: Marijuana Lives: with Family Domestic Violence: Neg Allergies and medications Allergies: Coded Allergies: Mercaptopurine (Verified Allergy, Unknown, 02/21/20) Home Meds Active Scripts Hydrochlorothiazide W/Triamter (Hctz/Triamterene) 1 Tab Tab, 1 TAB PO DAILY for 20 Days, #20 TAB Prov:HECTOR TADEOMELISSA PA 12/17/21 Reported Medications Atorvastatin Calcium (ATORVASTATIN CALCIUM) 20 Mg Tab, 1 TAB PO DAILY 03/20/25 Losartan Potassium (Losartan Potassium) 50 Mg Tab, 1 TAB PO DAILY 03/20/25 Lamotrigine (Lamotrigine) 25 Mg Tab, 1 TAB PO DAILY 03/20/25 Icosapent Ethyl (Icosapent Ethyl) 1 Gm Cap, 2 CAP PO BID 03/20/25 Upadacitinib (Rinvoq) 30 Mg Tab, 1 TAB PO DAILY 03/20/25 Amlodipine Besylate (Amlodipine Besylate) 5 Mg Tab, 1 TAB PO DAILY, #30 TAB 5 Refills 08/02/16 Propranolol Hcl (Inderal La) 80 Mg Cap, 80 MG PO DAILY, #1 CAP 08/02/16 Tamsulosin Hcl (Tamsulosin Hcl) 0.4 Mg Cap, 1 CAP PO DAILY, #30 CAP 1 Refill 08/02/16 Potassium Citrate (Potassium Citrate) 1,080 Mg Tab, 2 TAB PO TID, #360 TAB 2 Refills 08/02/16 Magnesium Oxide (MAGNESIUM OXIDE) 400 Mg Tab, 1 TAB PO BID, #60 TAB 2 Refills 08/02/16 Escitalopram Oxalate (ESCITALOPRAM OXALATE) 20 Mg Tab, 20 MG PO, TAB 08/02/16 Omeprazole (PRILOSEC) 20 Mg Cap, 20 MG OR DAILY, CAP 08/02/16 Review of systems Review of Systems: HEENT:Normal, CVS:Normal, RESPIRATORY:Normal, GI:Normal, :Normal, MSK:Normal, NEURO:Abnormal (Intermittent changes in dexterity to the to both hands) Examination Vital signs Imaging: EXAM: CT NECK WITHOUT CONTRAST HISTORY: neck pain, upper extremity tingling COMPARISON: None TECHNIQUE: Helical CT images of the neck were performed without contrast. Sagittal and coronal reformatted images were obtained. This CT exam was performed using one or more of the following dose reduction techniques: Automated exposure control, adjustment of the mA and/or kV according to patient size, or use of iterative reconstruction technique. Radiation Dose Information: CT Dose: CTDI volume is 25.32 mGy. Dose-length product is 746.19 mGy*cm. FINDINGS: No radiologically significant cervical adenopathy or mass. There is hypertrophy of the palatine and lingual tonsils with narrowing of the upper airway. The vocal cords are symmetric. No abnormal thickening of the epiglottis. The noncontrast parotid glands, submandibular glands, and thyroid are unremarkable. There is mucosal thickening in the bilateral maxillary, bilateral ethmoid, and left sphenoid sinuses and mastoid air cells are clear. The lung apices are clear. Bovine aortic arch is incidentally noted. There is cervical degenerative disc disease, greatest at C5-C6, with significant neural foraminal stenosis on the left at C5-C6. There is mild spinal canal stenosis C5-C6. IMPRESSION: 1. Tonsillar hypertrophy with narrowing of the upper airway. 2. Mild paranasal sinus disease. 3. No radiologically significant cervical lymphadenopathy or mass. 4. Cervical degenerative disc disease with mild spinal canal stenosis and significant left neural foraminal stenosis at C5-C6. If the patient complains of upper extremity radicular symptoms, consider follow-up noncontrast MRI of the cervical spine for further evaluation on an outpatient basis. Vital Signs Date Time Temp Pulse Resp B/P (MAP) Pulse Ox O2 Delivery O2 Flow Rate FiO2 03/21/25 09:11 98.5 85 18 154/86 (108) 98 98.5 03/21/25 08:00 Room Air* 0 21 Medications Current Medications Medications (Trade) Dose Ordered Sig/Delio Route PRN Reason Start Time Stop Time Status Last Admin Piperacillin Sod/ Tazobactam Sod 100 ml @ 25 mls/hr Q8HR IV 03/20/25 13:15 03/21/25 06:03 Acetaminophen/ Hydrocodone Bitart ([place] 5/325MG Tab) 1 tab Q4HP PRN PO MODERATE PAIN (4-6 PAIN SCALE) 03/20/25 13:15 03/21/25 11:00 DC 03/21/25 10:30 Ondansetron HCl (Zofran) 4 mg Q4HP PRN IV NAUSEA / VOMITING 03/20/25 13:15 03/21/25 11:00 DC Acetaminophen (Tylenol Tablet) 650 mg Q6HP PRN PO PAIN SCALE 1-3 OR TEMP>100.4 03/20/25 13:15 Morphine Sulfate 2 mg Q4HPRN PRN IV SEVERE PAIN (7-10 PAIN SCALE) 03/20/25 13:15 03/21/25 11:00 DC 03/21/25 03:29 Nitroglycerin (Ntrostat Sublingual) 0.4 mg Q5MINP PRN SL FOR CHEST PAIN 03/20/25 13:15 03/21/25 11:00 DC Morphine Sulfate 2 mg Q30M PRN IV FOR CHEST PAIN 03/20/25 13:15 03/21/25 11:00 DC Amlodipine Besylate (Norvasc Tablet) 5 mg DAILY PO 03/21/25 10:00 Tamsulosin HCl (Flomax) 0.4 mg QPM PO 03/20/25 18:00 03/20/25 18:10 Patient Own Medication 1 tab DAILY PO 03/21/25 10:00 Magnesium Oxide (Mag-Ox Tablet) 400 mg BID PO 03/20/25 22:00 03/21/25 11:00 DC 03/20/25 21:43 Pantoprazole Sodium (Protonix Tablet) 40 mg DAILY PO 03/21/25 10:00 Patient Own Medication 80 mg DAILY PO 03/21/25 10:00 Hold Atorvastatin Calcium (Lipitor) 20 mg HS PO 03/20/25 22:00 03/20/25 21:42 Losartan Potassium (Cozaar Tablet) 50 mg DAILY PO 03/21/25 10:00 Patient Own Medication 2 cap BIDWM PO 03/20/25 18:00 Lamotrigine (LaMICtal TABLET) 25 mg DAILY PO 03/21/25 10:00 Patient Own Medication 1 tab DAILY PO 03/21/25 10:00 Hydralazine HCl (Apresoline Injection) 10 mg Q6HP PRN IV SBP>150 03/20/25 17:45 03/21/25 11:00 DC Laboratory Labs Test 03/21/25 06:46 03/20/25 15:13 03/20/25 13:12 03/20/25 11:55 Range/Units White Blood Count 8.6 # 4.4-10.8 10^3/uL Red Blood Count 4.56 4.5-5.90 10^6/uL Hemoglobin 14.1 13.5-17.5 g/dL Hematocrit 40.9 L 41.0-53.0 % Mean Corpuscular Volume 89.7 80.0-100.0 fL Mean Corpuscular Hemoglobin 31.0 28.0-32.0 pg Mean Corpuscular Hemoglobin Concent 34.5 32.0-36.0 g/dL Red Cell Distribution Width 14.3 11.8-14.3 % Platelet Count 246 140-450 10^3/uL Mean Platelet Volume 8.6 6.9-10.8 fL Neutrophils (%) (Auto) 78.5 37.0-80.0 % Lymphocytes (%) (Auto) 6.6 L 10.0-50.0 % Monocytes (%) (Auto) 13.9 H 0.0-12.0 % Eosinophils (%) (Auto) 0.8 0.0-7.0 % Basophils (%) (Auto) 0.2 0.0-2.0 % Neutrophils # (Auto) 6.7 1.6-8.6 10 ^3/uL Lymphocytes # (Auto) 0.6 0.4-5.4 10 ^3/uL Monocytes # (Auto) 1.2 0-1.3 10 ^3/uL Eosinophils # (Auto) 0.1 0-0.8 10 ^3/uL Basophils # (Auto) 0 0-0.2 10 ^3/uL Nucleated Red Blood Cells 0.0 % Sodium Level 141 136-145 mmol/L Potassium Level 3.9 3.5-5.1 mmol/L Chloride Level 108 H 98-107 mmol/L Carbon Dioxide Level 26 20-31 mmol/L Anion Gap 7 5-15 Blood Urea Nitrogen 11 9-23 mg/dL Creatinine 0.92 0.700-1.30 mg/dL Glomerular Filtration Rate Calc 99 >90 mL/min BUN/Creatinine Ratio 12.0 10.0-20.0 Serum Glucose 103 74-106 mg/dL Calcium Level 10.0 8.7-10.4 mg/dL Total Bilirubin 0.9 0.2-1.0 mg/dL Aspartate Amino Transferase (AST) 25 13-40 U/L Alanine Aminotransferase (ALT) 30 7-40 U/L Alkaline Phosphatase 79 46-116 U/L Total Protein 6.7 5.7-8.2 g/dL Albumin 4.7 3.2-4.8 g/dL Lactic Acid Level 2.9 *H 0.4-2.0 mmol/L Troponin I High Sensitivity 13 </=54 ng/L Urine Color Colorless Yellow Urine Clarity Clear Clear Urine pH 5.0 5.0-9.0 Urine Specific [place] 1.006 1.001-1.035 Urine Protein Negative Negative Urine Ketones Negative Negative Urine Blood Negative Negative /uL Urine Nitrite Negative Negative Urine Bilirubin Negative Negative Urine Urobilinogen Normal Negative mg/dL Urine Leukocyte Esterase Negative Negative /uL Urine RBC <1 0 - 3 /hpf Urine Microscopic WBC 1 0-3 /HPF Urine Squamous Epithelial Cells None seen <5 /hpf Urine Bacteria None seen None Seen /hpf Urine Glucose Normal Normal mg/dL Urine Opiates Screen Neg NEGATIVE Urine Fentanyl Screen Neg NEGATIVE Urine Barbiturates Screen Neg NEGATIVE Urine Phencyclidine Screen Neg NEGATIVE Urine Amphetamines Screen Neg NEGATIVE Urine Benzodiazepines Screen Neg NEGATIVE Urine Cocaine Screen Neg NEGATIVE Urine Cannabinoids Screen Pos NEGATIVE Microbiology Date/Time Source Procedure Growth Status 03/20/25 11:55 Voided Urine Urine Culture - Preliminary Resulted Examination: GENERAL:Normal, HEENT:Normal, NECK:Abnormal (Neck pain paraspinal area), LUNGS:Normal, CVS:Normal, ABDOMEN:Normal, 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), SKIN:Normal, NEURO:Normal (Changes in sensation) Problem List/Assessment/Plan Problems: (1) Cervical stenosis of spinal canal Assessment and Plan Cervical degenerative disc disease with mild spinal canal stenosis significant left neural foraminal stenosis at C5-C6 Patient does not need emergent spine surgery at this time Patient is cleared for discharge from a spine surgery perspective Continue supportive care and management per admitting team's discretion Recommendations: Patient may follow up as a outpatient with his PCP, recommend patient have non contrast MRI Cervical spine and spine referral if he has increased cervical radiculopathy symptoms Patient would benefit from physical therapy, strengthening, posture, flexibility cervical spine specific Call with questions Jer Ko [facility] Orthopaedic Spine Surgery nurse practitioner For Dr Virgen Renee Patient was examined, chart reviewed, labs evaluated, and diagnostic studies and findings analyzed. Case was discussed with Dr. Alvarado Renee who formulated the plan of care. This medical document was created using an electronic medical record system with [employer] dictation system. Although this document has been carefully reviewed, there might still be some phonetic and typographical errors. These areas are purely typographical due to imperfections of the software programs, and do not reflect any compromise in the patient's medical care. Plan discussed with Plan discussed with: Patient, Other (Sonali extension [id number]) YAMILA KO NP Mar 21, 2025 11:32
--- NOTE | 2025-03-21 13:27 | DVHINCON2 ---
Date of service: Mar 21, 2025 Referring Physician Hospitalist Reason for Consultation Right hydronephrosis Right renal stone right ureteral stone History of Present Illness Patient with a history of recurrent stone disease status post lithotripsy with UIHD in 2016 at [facility] is admitted for headaches, hypertension and back pain. The CT scan shows a 9 mm right distal ureteral calculus with moderate hydronephrosis. There is also a 4 mm right kidney stone. Patient has history of Crohn's disease and underwent open abdominal surgery. 54-year-old male with past medical history of hypertension, hyperlipidemia, anxiety, depression, kidney stones, Crohn's, tonsillectomy, and lithotripsy who presents to the ED with a blood pressure this morning, headache, nausea, abdominal discomfort, left hand tingling, neck pain, chills, and shoulder pain x1 day. Patient states that the headache is 4/10 pressure-like and constant. Patient states that he checks his blood pressure regularly and states that his systolics was over 220s this morning. He states that he checks it on a regimen and the information gets that electronically to the OR. He states that he is compliant with his medications. He also states that he occasionally drinks, quit smoking, but does use marijuana. Patient also reported that his neck pain and shoulder pain has been going on for 1 month. He states that he had seen a chiropractor to get it adjusted with no relief. Patient's Alisa at the bedside. She also reported that the patient has been having abdominal discomfort for a month. Patient denies any chest pain, fever, recent injury or trauma, recent ingestion of spoiled food, recent sick contacts, recent travels, shortness of breath, vomiting, or diarrhea. Past Medical History Cardiovascular: HTN, hyperipidemia Psych: Anxiety, Depression Past Medical History Nephrolithiasis Crohn's disease Past Surgical History Past Surgical History: Other (Lithotripsy), Tonsillectomy Family History: Cardiovascular disease G8 FATHER, FHx: leukemia G8 MOTHER, Allergies: Coded Allergies: Mercaptopurine (Verified Allergy, Unknown, 02/21/20) Home Meds Active Scripts Hydrochlorothiazide W/Triamter (Hctz/Triamterene) 1 Tab Tab, 1 TAB PO DAILY for 20 Days, #20 TAB Prov:LUIS A TADEO 12/17/21 Reported Medications Atorvastatin Calcium (ATORVASTATIN CALCIUM) 20 Mg Tab, 1 TAB PO DAILY 03/20/25 Losartan Potassium (Losartan Potassium) 50 Mg Tab, 1 TAB PO DAILY 03/20/25 Lamotrigine (Lamotrigine) 25 Mg Tab, 1 TAB PO DAILY 03/20/25 Icosapent Ethyl (Icosapent Ethyl) 1 Gm Cap, 2 CAP PO BID 03/20/25 Upadacitinib (Rinvoq) 30 Mg Tab, 1 TAB PO DAILY 03/20/25 Amlodipine Besylate (Amlodipine Besylate) 5 Mg Tab, 1 TAB PO DAILY, #30 TAB 5 Refills 08/02/16 Propranolol Hcl (Inderal La) 80 Mg Cap, 80 MG PO DAILY, #1 CAP 08/02/16 Tamsulosin Hcl (Tamsulosin Hcl) 0.4 Mg Cap, 1 CAP PO DAILY, #30 CAP 1 Refill 08/02/16 Potassium Citrate (Potassium Citrate) 1,080 Mg Tab, 2 TAB PO TID, #360 TAB 2 Refills 08/02/16 Magnesium Oxide (MAGNESIUM OXIDE) 400 Mg Tab, 1 TAB PO BID, #60 TAB 2 Refills 08/02/16 Escitalopram Oxalate (ESCITALOPRAM OXALATE) 20 Mg Tab, 20 MG PO, TAB 08/02/16 Omeprazole (PRILOSEC) 20 Mg Cap, 20 MG OR DAILY, CAP 08/02/16 Current Medications Current Medications Medications (Trade) Dose Ordered Sig/Delio Route PRN Reason Start Time Stop Time Status Last Admin Amlodipine Besylate (Norvasc Tablet) 5 mg DAILY PO 03/21/25 10:00 Tamsulosin HCl (Flomax) 0.4 mg QPM PO 03/20/25 18:00 03/20/25 18:10 Patient Own Medication 1 tab DAILY PO 03/21/25 10:00 Magnesium Oxide (Mag-Ox Tablet) 400 mg BID PO 03/20/25 22:00 03/21/25 11:00 DC 03/20/25 21:43 Pantoprazole Sodium (Protonix Tablet) 40 mg DAILY PO 03/21/25 10:00 Patient Own Medication 80 mg DAILY PO 03/21/25 10:00 Hold Atorvastatin Calcium (Lipitor) 20 mg HS PO 03/20/25 22:00 03/20/25 21:42 Losartan Potassium (Cozaar Tablet) 50 mg DAILY PO 03/21/25 10:00 Patient Own Medication 2 cap BIDWM PO 03/20/25 18:00 Lamotrigine (LaMICtal TABLET) 25 mg DAILY PO 03/21/25 10:00 Patient Own Medication 1 tab DAILY PO 03/21/25 10:00 Hydralazine HCl (Apresoline Injection) 10 mg Q6HP PRN IV SBP>150 03/20/25 17:45 03/21/25 11:00 DC Review of Systems Constitutional: Yes: Chills, Other (Headache) Gastrointestinal: Other (Abdominal discomfort) Allergies: Coded Allergies: Mercaptopurine (Verified Allergy, Unknown, 02/21/20) Medications Current Medications Medications Dose Ordered Sig/Delio Route Start Time Stop Time Status Last Admin Dose Admin Piperacillin Sod/ Tazobactam Sod 100 ml @ 25 mls/hr Q8HR IV 03/20/25 13:15 UNV Acetaminophen/ Hydrocodone Bitart 1 tab Q4HP PRN PO 03/20/25 13:15 UNV Ondansetron HCl 4 mg Q4HP PRN IV 03/20/25 13:15 UNV Acetaminophen 650 mg Q6HP PRN PO 03/20/25 13:15 UNV Morphine Sulfate 2 mg Q4HPRN PRN IV 03/20/25 13:15 UNV Nitroglycerin 0.4 mg Q5MINP PRN SL 03/20/25 13:15 UNV Morphine Sulfate 2 mg Q30M PRN IV 03/20/25 13:15 UNV Amlodipine Besylate 5 mg DAILY PO 03/21/25 10:00 UNV Tamsulosin HCl 0.4 mg DAILY PO 03/21/25 10:00 UNV Patient Own Medication 1 tab DAILY PO 03/21/25 10:00 UNV Patient Own Medication 1 tab BID PO 03/20/25 22:00 UNV Patient Own Medication 20 mg DAILY OR 03/21/25 10:00 UNV Patient Own Medication 80 mg DAILY PO 03/21/25 10:00 UNV Vital Signs Vital Signs Date Time Temp Pulse Resp B/P (MAP) Pulse Ox O2 Delivery O2 Flow Rate FiO2 03/21/25 12:46 99.2 75 18 129/89 (102) 97 99.2 03/21/25 08:00 Room Air* 0 21 Physical Exam Vital Signs Date Time Temp Pulse Resp B/P (MAP) Pulse Ox O2 Delivery O2 Flow Rate FiO2 03/20/25 12:19 98.8 108 16 129/95 (106) 97 98.8 03/20/25 10:05 Room Air* 0 21 General Appearance: Alert, Oriented X3, Cooperative, mild distress HEENT: Atraumatic, PERRLA, EOMI, Mucous membr. moist/pink Respiratory: Normal air movement Cardiovascular: Normal S1, Normal S2 Abdominal: Normal bowel sounds, Soft Extremities: Normal pulses Skin: No significant lesion Neuro: Normal gait, Normal speech, Strength at / X4 ext, Normal tone, Sensation intact Psych/Mental Status: Mental status NL, Mood NL Labs/Diagnostic Data Labs Test 03/21/25 06:46 03/20/25 15:13 03/20/25 13:12 03/20/25 11:55 Range/Units White Blood Count 8.6 # 4.4-10.8 10^3/uL Red Blood Count 4.56 4.5-5.90 10^6/uL Hemoglobin 14.1 13.5-17.5 g/dL Hematocrit 40.9 L 41.0-53.0 % Mean Corpuscular Volume 89.7 80.0-100.0 fL Mean Corpuscular Hemoglobin 31.0 28.0-32.0 pg Mean Corpuscular Hemoglobin Concent 34.5 32.0-36.0 g/dL Red Cell Distribution Width 14.3 11.8-14.3 % Platelet Count 246 140-450 10^3/uL Mean Platelet Volume 8.6 6.9-10.8 fL Neutrophils (%) (Auto) 78.5 37.0-80.0 % Lymphocytes (%) (Auto) 6.6 L 10.0-50.0 % Monocytes (%) (Auto) 13.9 H 0.0-12.0 % Eosinophils (%) (Auto) 0.8 0.0-7.0 % Basophils (%) (Auto) 0.2 0.0-2.0 % Neutrophils # (Auto) 6.7 1.6-8.6 10 ^3/uL Lymphocytes # (Auto) 0.6 0.4-5.4 10 ^3/uL Monocytes # (Auto) 1.2 0-1.3 10 ^3/uL Eosinophils # (Auto) 0.1 0-0.8 10 ^3/uL Basophils # (Auto) 0 0-0.2 10 ^3/uL Nucleated Red Blood Cells 0.0 % Sodium Level 141 136-145 mmol/L Potassium Level 3.9 3.5-5.1 mmol/L Chloride Level 108 H 98-107 mmol/L Carbon Dioxide Level 26 20-31 mmol/L Anion Gap 7 5-15 Blood Urea Nitrogen 11 9-23 mg/dL Creatinine 0.92 0.700-1.30 mg/dL Glomerular Filtration Rate Calc 99 >90 mL/min BUN/Creatinine Ratio 12.0 10.0-20.0 Serum Glucose 103 74-106 mg/dL Calcium Level 10.0 8.7-10.4 mg/dL Total Bilirubin 0.9 0.2-1.0 mg/dL Aspartate Amino Transferase (AST) 25 13-40 U/L Alanine Aminotransferase (ALT) 30 7-40 U/L Alkaline Phosphatase 79 46-116 U/L Total Protein 6.7 5.7-8.2 g/dL Albumin 4.7 3.2-4.8 g/dL Lactic Acid Level 2.9 *H 0.4-2.0 mmol/L Troponin I High Sensitivity 13 </=54 ng/L Urine Color Colorless Yellow Urine Clarity Clear Clear Urine pH 5.0 5.0-9.0 Urine Specific [place] 1.006 1.001-1.035 Urine Protein Negative Negative Urine Ketones Negative Negative Urine Blood Negative Negative /uL Urine Nitrite Negative Negative Urine Bilirubin Negative Negative Urine Urobilinogen Normal Negative mg/dL Urine Leukocyte Esterase Negative Negative /uL Urine RBC <1 0 - 3 /hpf Urine Microscopic WBC 1 0-3 /HPF Urine Squamous Epithelial Cells None seen <5 /hpf Urine Bacteria None seen None Seen /hpf Urine Glucose Normal Normal mg/dL Urine Opiates Screen Neg NEGATIVE Urine Fentanyl Screen Neg NEGATIVE Urine Barbiturates Screen Neg NEGATIVE Urine Phencyclidine Screen Neg NEGATIVE Urine Amphetamines Screen Neg NEGATIVE Urine Benzodiazepines Screen Neg NEGATIVE Urine Cocaine Screen Neg NEGATIVE Urine Cannabinoids Screen Pos NEGATIVE Microbiology Date/Time Source Procedure Growth Status 03/20/25 11:55 Voided Urine Urine Culture - Preliminary Resulted PATIENT: MAYRA BOUDREAUX ACCT: [id number] UNIT: [id number] : 1970 LOC: OVERFLOW ROOM / BED: [address] [address] AGE / SEX: 54 / M ADM STATUS: ADM IN SERVICE 1307 ORDERING PHYSICIAN: SHAVON GALAN YARD ASSOCIATE PROCEDURE(s): CTCAP - CHST AB PEL WO CON-NO IV/ORAL REASON: sob ORDER NUMBER(s): [id number], ACCESSION NUMBER(s): [id number] Exam: CT CHST AB PEL WO CON-NO IV/ORAL History: sob Comparison Study: None Technique: Multidetector spiral CT of the chest, abdomen and pelvis was performed from lower neck to pubic symphysis Axial, coronal and sagittal multiplanar reformats were performed by the technologist on a separate workstation. Radiation Dose : Chest/Abdomen/Pelvis: CTDIvol 12.25 mGy, DLP 844.72 mGy*cm. Findings: Lower neck: Normal thyroid. Lungs: Mild ground-glass opacity anterior right upper lobe. Multiple less than 6 mm nodules in the right. Tree-in-bud nodularity in the right lower lung. Heart/Vascular Structures: Normal heart size. No pericardial effusion. Lymph Nodes: No adenopathy Pleura: No pleural effusion or significant pneumothorax. Liver: The liver is normal in size. No focal lesions. Normal hepatic vascular enhancement. Gallbladder and Biliary Tree: Unremarkable Spleen: Unremarkable Pancreas: The pancreas is normal in appearance without focal lesions or abnormal enhancement. Adrenal Glands: Unremarkable Kidneys: Moderate right hydronephrosis and hydroureter with an obstructing calculus in the distal right ureter measuring up to 7 x 9 mm. Additional punctate calcification in the mid right ureter. Few right renal calculi measuring up to 2 mm. Left renal calculus measuring up to 2 mm. No left hydronephrosis. Bladder: Unremarkable Bowel: The stomach is grossly normal in appearance. Postsurgical changes in the small bowel and cecum. No evidence of bowel obstruction. Appendix not identified. Ascites: Absent Lymphadenopathy: Mildly prominent but subcentimeter mesenteric lymph nodes. Abdominal Wall and Mesentery: Unremarkable. Vasculature: The visualized abdominal aorta is normal in size and caliber. Abdominal and pelvic vessels demonstrate normal enhancement. Pelvic Organs: Unremarkable Musculoskeletal: No aggressive focal bony lesions, acute fractures or dislocation. IMPRESSION: 1. Ground-glass opacity with diffuse micronodularity including tree-in-bud nodularity in the right lung, likely infectious / inflammatory. Clinical cor relation and continued follow-up is recommended. Next chest CT in 3 months. 2. Moderate right hydronephrosis and hydroureter with obstructing calculus in the distal right ureter measuring up to 7 x 9 mm. Other bilateral renal calculi noted. Urology evaluation is recommended. 3. Postsurgical changes in the bowel and cecum. No evidence of bowel obstruction. Mesenteric lymphadenopathy is nonspecific. HS:Y ATED BY: CHARLIE YBARRA MD DICTATED DATE/TIME: 03/20/25 1410 Assessment Moderate right hydronephrosis secondary to right distal ureteral calculus measuring 9 mm Right nephrolithiasis 3-4 mm Right abdominal pain Plan/Recommendation Cystoscopy with right ureteral stent placement and right extracorporeal shockwave lithotripsy versus right ureteroscopic laser lithotripsy to be scheduled for 03/24/25 Plan discussed with: Patient, Spouse, Other MARY KAY GOTTI MD Mar 21, 2025 13:26
--- NOTE | 2025-03-21 17:04 | DVHPNRES ---
Progress Note Date Seen: Mar 21, 2025 Resident Creating Document: OSEAS DALE RESIDENT Has the PT tested + for MRSA If YES, has PT been informed?: No Medical Necessity Reason Pt with a Central, PICC or Fol: No Subjective Review of Systems Torrey Mack is a 54-year-old male with past medical history of hypertension, hyperlipidemia, anxiety, depression, kidney stones, Crohn's, tonsillectomy, and lithotripsy who presents to the ED with a blood pressure this morning, headache, nausea, abdominal discomfort, left hand tingling, neck pain, chills, and shoulder pain x1 day. Patient states that the headache is 4/10 pressure-like and constant. Patient states that he checks his blood pressure regularly and states that his systolics was over 220s this morning. He states that he checks it on a regimen and [facility] He states that he is compliant with his medications. He also states that he occasionally drinks, quit smoking, but does use marijuana. Patient also reported that his neck pain and shoulder pain has been going on for 1 month. He states that he had seen a chiropractor to get it adjusted with no relief. Patient's Alisa at the bedside. She also reported that the patient has been having abdominal discomfort for a month. Patient denies any chest pain, fever, recent injury or trauma, recent ingestion of spoiled food, recent sick contacts, recent travels, shortness of breath, vomiting, or diarrhea. Cardiovascular: HTN, hyperipidemia Psych: Anxiety, Depression Past Medical History Nephrolithiasis Crohn's disease Past Surgical History: Other (Lithotripsy), Tonsillectomy Family History: Cancer, Hypertension, Other (Dad with heart disease and hypertension. Mom with leukemia cancer.) Smoke: Quit ALCOHOL: occassional Drugs: Marijuana Lives: with Family Domestic Violence: Neg 03/21/25: BP is under control, possible sepsis due to nephrolithiasis and Moderate right hydronephrosis and hydroureter with obstructing calculus in the distal right ureter measuring up to 7 x 9 mm, urology consulted, Cystoscopy with right ureteral stent placement and right extracorporeal shockwave lithotripsy versus right ureteroscopic laser lithotripsy to be scheduled for 03/24/25, c5c6 stenosis will be f/u as outpatient, patient is being in inmunotherapy with rinvoq due to Chrons disease, pulmonary findings can be fu as outpatient since he doesnt have any respiratory symptoms Objective vital signs Vital Sign Date Time Temp Pulse Resp B/P (MAP) Pulse Ox O2 Delivery O2 Flow Rate FiO2 03/21/25 16:30 99.2 72 18 135/84 (101) 96 99.2 03/21/25 08:00 Room Air* 0 21 Total Intake and Output 03/20/25 03/20/25 03/21/25 15:00 23:00 07:00 Intake Total 1000 ml 125 ml 920 ml Balance 1000 ml 125 ml 920 ml medications Current Medications Medications Dose Ordered Sig/Delio Route Start Time Stop Time Status Last Admin Dose Admin Piperacillin Sod/ Tazobactam Sod 100 ml @ 25 mls/hr Q8HR IV 03/20/25 13:15 03/21/25 16:04 25 MLS/HR Acetaminophen 650 mg Q6HP PRN PO 03/20/25 13:15 Amlodipine Besylate 5 mg DAILY PO 03/21/25 10:00 Tamsulosin HCl 0.4 mg QPM PO 03/20/25 18:00 03/20/25 18:10 0.4 MG Patient Own Medication 1 tab DAILY PO 03/21/25 10:00 Pantoprazole Sodium 40 mg DAILY PO 03/21/25 10:00 Patient Own Medication 80 mg DAILY PO 03/21/25 10:00 Hold Atorvastatin Calcium 20 mg HS PO 03/20/25 22:00 03/20/25 21:42 20 MG Losartan Potassium 50 mg DAILY PO 03/21/25 10:00 Patient Own Medication 2 cap BIDWM PO 03/20/25 18:00 Lamotrigine 25 mg DAILY PO 03/21/25 10:00 Patient Own Medication 1 tab DAILY PO 03/21/25 10:00 Examination General Appearance: Alert, Oriented X3, Cooperative, mild distress HEENT: Atraumatic, PERRLA, EOMI, Mucous membr. moist/pink Respiratory: Normal air movement Cardiovascular: Normal S1, Normal S2 Abdominal: Normal bowel sounds, Soft Extremities: Normal pulses Skin: No significant lesion Neuro: Normal gait, Normal speech, Strength at 5/5 X4 ext, Normal tone, Sensation intact Psych/Mental Status: Mental status NL, Mood NL laboratory and microbiology Laboratory Tests 03/21/25 06:46 Test 03/21/25 06:46 Range/Units Serum Glucose 103 74-106 mg/dL Microbiology Date/Time Source Procedure Growth Status 03/20/25 13:12 Blood Blood Culture - Preliminary NO GROWTH AFTER 24 HOURS OF INCUBATION. 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 Plan Continue Antihypertensives PO IV antibiotics-Zosyn Beta-blockers given ED EKG noted Troponin negative x2 UA normal Lactic level trending Blood cultures pending Urine cultures pending CT head/neck/chest/abdomen and pelvis: normal head ct, neck stenosis c5c6, kidney stone with ureterohydronephrosis IV fluid bolus given Diet Home medications reconciled DVT prophylaxis-not indicated patient ambulating PUD prophylaxis-PPIs Discussed plan of care with patient, patient's , and nurse Spinal consult: fu as outpatient Urology: need of procedure on monday03/24/[address] Caceres Full code Plan discussed with: Patient, Other (rn) My Orders My Orders Orders - OSEAS DALE RESIDENT Procedure Category Date Status Time Discontinue Tele CAS 03/21/25 In Process 09:49 Respiratory Culture MONIE 03/21/25 Uncollected W/ Gs 10:55 * Urology Consult CONS 03/21/25 Transmitted 10:57 Date of Service: Mar 21, 2025 Billing Provider: KAMRON CACERES MD Common Visit Codes: [id number] INP/OBS CARE(HIGH) OSEAS DALE RESIDENT Mar 21, 2025 17:04 KAMRON CACERES MD Mar 25, 2025 14:42
[2025-03-21] MEDS: LORazepam 2MG/ML-1ML VIAL IV PRN (21:49)
[2025-03-22] VITALS (7 sets, daily range): BP systolic 125–154; BP diastolic 73–102; PULSE 80–116; RESP 18–20; TEMP 96.3–98.7; O2SAT 96–99
[2025-03-22 07:14] LABS: Basophils # (auto) 0 10 ^3/uL (0-0.2); Basophils % (auto) 0.4 % (0.0-2.0); Eosinophils # (auto) 0.1 10 ^3/uL (0-0.8); Eosinophils % (auto) 1.5 % (0.0-7.0); Hematocrit 41.2 % (41.0-53.0); Hemoglobin 14.2 g/dL (13.5-17.5); Mean Corpuscular Hgb Conc. 34.4 g/dL (32.0-36.0); Mean Corpuscular Volume 90.1 fL (80.0-100.0); Monocytes # (auto) 1.2 10 ^3/uL (0-1.3); Monocytes % (auto) 16.2 % (0.0-12.0); Neutrophils # (auto) 5.1 10 ^3/uL (1.6-8.6); Neutrophils % (auto) 68.9 % (37.0-80.0); Nucleated Red Blood Cells % 0.1 %; Platelet Count (auto) 245 10^3/uL (140-450); Red Blood Cells 4.57 10^6/uL (4.5-5.90); Red Cell Distribution Width 14.3 % (11.8-14.3); White Blood Cell 7.4 10^3/uL (4.4-10.8)
[2025-03-22 07:23] LABS: Alanine Aminotransferase 29 U/L (7-40); Albumin 4.6 g/dL (3.2-4.8); Alkaline Phosphatase 74 U/L (46-116); Anion Gap 8 (5-15); Aspartate Aminotransferase 25 U/L (13-40); BUN/Creatinine Ratio 13.5 (10.0-20.0); Blood Urea Nitrogen 15 mg/dL (9-23); Calcium 9.8 mg/dL (8.7-10.4); Carbon Dioxide 28 mmol/L (20-31); Chloride 107 mmol/L (98-107); Glucose 93 mg/dL (74-106); Potassium 4.2 mmol/L (3.5-5.1); Sodium 143 mmol/L (136-145); Total Protein 6.6 g/dL (5.7-8.2)
[2025-03-22 07:24] LABS: Bilirubin, Total 0.7 mg/dL (0.2-1.0)
[2025-03-22 15:25] LABS: INR 1.05 (0.9-1.15); Partial Thromboplastin Time 28.9 SEC (24.5-34.5); Prothrombin Time 11.1 sec (9.3-11.8)
--- NOTE | 2025-03-22 18:26 | DVHPN2 ---
Subjective in bed resting Reviewed: H&P, Labs Changes from previous H/P or p: No Changes Gastrointestinal: Other (Abdominal discomfort) Objective Vitals Vital Signs Date Time Temp Pulse Resp B/P (MAP) Pulse Ox O2 Delivery O2 Flow Rate FiO2 03/22/25 16:45 98.7 112 20 131/95 (107) 97 98.7 03/22/25 08:00 Room Air* 0 21 Intake/Output Intake and Output 03/22/25 07:00 Intake Total 1470 ml Balance 1470 ml Intake Oral 1370 ml IV Total 100 ml # Voids 5 General Appearance: Alert, Oriented X3 HEENT: Atraumatic Lungs: Clear to auscultation Cardiovascular: Regular rate, Normal S1, Normal S2 Abdomen: Normal bowel sounds Medications Current Medications Medications Dose Ordered Sig/Delio Route Start Time Stop Time Status Last Admin Dose Admin Piperacillin Sod/ Tazobactam Sod 100 ml @ 25 mls/hr Q8HR IV 03/20/25 13:15 03/22/25 15:10 25 MLS/HR Acetaminophen 650 mg Q6HP PRN PO 03/20/25 13:15 Amlodipine Besylate 5 mg DAILY PO 03/21/25 10:00 03/22/25 09:11 5 MG Tamsulosin HCl 0.4 mg QPM PO 03/20/25 18:00 03/21/25 17:40 0.4 MG Patient Own Medication 1 tab DAILY PO 03/21/25 10:00 Pantoprazole Sodium 40 mg DAILY PO 03/21/25 10:00 03/22/25 09:11 40 MG Patient Own Medication 80 mg DAILY PO 03/21/25 10:00 Hold Atorvastatin Calcium 20 mg HS PO 03/20/25 22:00 03/21/25 21:45 20 MG Losartan Potassium 50 mg DAILY PO 03/21/25 10:00 03/22/25 09:11 50 MG Patient Own Medication 2 cap BIDWM PO 03/20/25 18:00 Lamotrigine 25 mg DAILY PO 03/21/25 10:00 03/22/25 09:11 25 MG Patient Own Medication 1 tab DAILY PO 03/21/25 10:00 Lorazepam 1 mg Q12HP PRN IV 03/21/25 17:15 03/21/25 21:49 1 MG Laboratory Results Laboratory Tests 03/22/25 05:54 Chemistry Test 03/22/25 05:54 Albumin 4.6 g/dL (3.2-4.8) Calcium Level 9.8 mg/dL (8.7-10.4) Total Protein 6.6 g/dL (5.7-8.2) Coagulation Test 03/22/25 14:47 Prothrombin Time 11.1 sec (9.3-11.8) Prothrombin Time INR 1.05 (0.9-1.15) Activated Partial Thromboplast Time 28.9 SEC (24.5-34.5) LFT Test 03/22/25 05:54 Alanine Aminotransferase (ALT) 29 U/L (7-40) Alkaline Phosphatase 74 U/L (46-116) Aspartate Amino Transferase (AST) 25 U/L (13-40) Total Bilirubin 0.7 mg/dL (0.2-1.0) Urinalysis Test 03/20/25 11:55 Urine Color Colorless (Yellow) Urine Clarity Clear (Clear) Urine pH 5.0 (5.0-9.0) Urine Specific [place] 1.006 (1.001-1.035) Urine Protein Negative (Negative) Urine Ketones Negative (Negative) Urine Blood Negative /uL (Negative) Urine Nitrite Negative (Negative) Urine Bilirubin Negative (Negative) Urine Urobilinogen Normal mg/dL (Negative) Urine Leukocyte Esterase Negative /uL (Negative) Urine RBC <1 /hpf (0 - 3) Urine Microscopic WBC 1 /HPF (0-3) Urine Squamous Epithelial Cells None seen /hpf (<5) Urine Bacteria None seen /hpf (None Seen) Urine Glucose Normal mg/dL (Normal) Microbiology Microbiology Date/Time Source Procedure Growth Status 03/20/25 13:12 Blood Blood Culture - Preliminary NO GROWTH AFTER 48 HOURS OF INCUBATION. 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 Plan Continue Antihypertensives PO IV antibiotics-Zosyn Beta-blockers given ED EKG noted Troponin negative x2 UA normal Lactic level trending Blood cultures pending Urine cultures pending CT head/neck/chest/abdomen and pelvis: normal head ct, neck stenosis c5c6, kidney stone with ureterohydronephrosis IV fluid bolus given Diet Home medications reconciled DVT prophylaxis-not indicated patient ambulating PUD prophylaxis-PPIs Discussed plan of care with patient, patient's , and nurse Spinal consult: fu as outpatient Urology: need of procedure on monday03/24/2025 Plan discussed with: Patient Date of Service: Mar 22, 2025 Billing Provider: FARIHA SANTAMARIA MD Common Visit Codes: [id number] INP/OBS CARE(HIGH) FARIHA SANTAMARIA MD Mar 22, 2025 18:26
[2025-03-23] VITALS (7 sets, daily range): BP systolic 117–133; BP diastolic 83–92; PULSE 80–117; RESP 16–20; TEMP 96.8–98.3; O2SAT 95–100
--- NOTE | 2025-03-23 11:53 | DVHPNRES ---
Progress Note Date Seen: Mar 23, 2025 Resident Creating Document: OSEAS DALE RESIDENT Has the PT tested + for MRSA If YES, has PT been informed?: No Medical Necessity Reason Pt with a Central, PICC or Fol: No Subjective Review of Systems Torrey Mack is a 54-year-old male with past medical history of hypertension, hyperlipidemia, anxiety, depression, kidney stones, Crohn's, tonsillectomy, and lithotripsy who presents to the ED with a blood pressure this morning, headache, nausea, abdominal discomfort, left hand tingling, neck pain, chills, and shoulder pain x1 day. Patient states that the headache is 4/10 pressure-like and constant. Patient states that he checks his blood pressure regularly and states that his systolics was over 220s this morning. He states that he checks it on a regimen and [facility] He states that he is compliant with his medications. He also states that he occasionally drinks, quit smoking, but does use marijuana. Patient also reported that his neck pain and shoulder pain has been going on for 1 month. He states that he had seen a chiropractor to get it adjusted with no relief. Patient's Alisa at the bedside. She also reported that the patient has been having abdominal discomfort for a month. Patient denies any chest pain, fever, recent injury or trauma, recent ingestion of spoiled food, recent sick contacts, recent travels, shortness of breath, vomiting, or diarrhea. Cardiovascular: HTN, hyperipidemia Psych: Anxiety, Depression Past Medical History Nephrolithiasis Crohn's disease Past Surgical History: Other (Lithotripsy), Tonsillectomy Family History: Cancer, Hypertension, Other (Dad with heart disease and hypertension. Mom with leukemia cancer.) Smoke: Quit ALCOHOL: occassional Drugs: Marijuana Lives: with Family Domestic Violence: Neg 03/21/25: BP is under control, possible sepsis due to nephrolithiasis and Moderate right hydronephrosis and hydroureter with obstructing calculus in the distal right ureter measuring up to 7 x 9 mm, urology consulted, Cystoscopy with right ureteral stent placement and right extracorporeal shockwave lithotripsy versus right ureteroscopic laser lithotripsy to be scheduled for 03/24/25, c5c6 stenosis will be f/u as outpatient, patient is being in inmunotherapy with rinvoq due to Chrons disease, pulmonary findings can be fu as outpatient since he doesnt have any respiratory symptoms 03/23/25 BP is under control, waiting for monday urology procedure Objective vital signs Vital Sign Date Time Temp Pulse Resp B/P (MAP) Pulse Ox O2 Delivery O2 Flow Rate FiO2 03/23/25 09:12 133/86 03/23/25 09:00 96.8 86 20 97 96.8 03/23/25 08:00 Room Air* 0 21 Total Intake and Output 03/22/25 03/22/25 03/23/25 15:00 23:00 07:00 Intake Total 400 ml 1120 ml 100 ml Balance 400 ml 1120 ml 100 ml medications Current Medications Medications Dose Ordered Sig/Delio Route Start Time Stop Time Status Last Admin Dose Admin Piperacillin Sod/ Tazobactam Sod 100 ml @ 25 mls/hr Q8HR IV 03/20/25 13:15 03/23/25 04:48 25 MLS/HR Acetaminophen 650 mg Q6HP PRN PO 03/20/25 13:15 Amlodipine Besylate 5 mg DAILY PO 03/21/25 10:00 03/23/25 09:12 5 MG Tamsulosin HCl 0.4 mg QPM PO 03/20/25 18:00 03/21/25 17:40 0.4 MG Patient Own Medication 1 tab DAILY PO 03/21/25 10:00 Pantoprazole Sodium 40 mg DAILY PO 03/21/25 10:00 03/23/25 09:11 40 MG Patient Own Medication 80 mg DAILY PO 03/21/25 10:00 Hold Atorvastatin Calcium 20 mg HS PO 03/20/25 22:00 03/22/25 20:56 20 MG Losartan Potassium 50 mg DAILY PO 03/21/25 10:00 03/23/25 09:11 50 MG Patient Own Medication 2 cap BIDWM PO 03/20/25 18:00 Lamotrigine 25 mg DAILY PO 03/21/25 10:00 03/23/25 09:11 25 MG Patient Own Medication 1 tab DAILY PO 03/21/25 10:00 Lorazepam 1 mg Q12HP PRN IV 03/21/25 17:15 03/22/25 20:56 1 MG Examination General Appearance: Alert, Oriented X3, Cooperative, mild distress HEENT: Atraumatic, PERRLA, EOMI, Mucous membr. moist/pink Respiratory: Normal air movement Cardiovascular: Normal S1, Normal S2 Abdominal: Normal bowel sounds, Soft Extremities: Normal pulses Skin: No significant lesion Neuro: Normal gait, Normal speech, Strength at 5/5 X4 ext, Normal tone, Sensation intact Psych/Mental Status: Mental status NL, Mood NL laboratory and microbiology Laboratory Tests 03/22/25 05:54 Test 03/22/25 05:54 Range/Units Serum Glucose 93 74-106 mg/dL Microbiology Date/Time Source Procedure Growth Status 03/20/25 13:12 Blood Blood Culture - Preliminary NO GROWTH AFTER 48 HOURS OF INCUBATION. 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 Plan Continue Antihypertensives PO IV antibiotics-Zosyn Beta-blockers given ED EKG noted Troponin negative x2 UA normal Lactic level trending Blood cultures pending Urine cultures pending CT head/neck/chest/abdomen and pelvis: normal head ct, neck stenosis c5c6, kidney stone with ureterohydronephrosis IV fluid bolus given Diet Home medications reconciled DVT prophylaxis-not indicated patient ambulating PUD prophylaxis-PPIs Discussed plan of care with patient, patient's , and nurse Spinal consult: fu as outpatient Urology: need of procedure on monday03/24/[address] Deal Full code Plan discussed with: Patient, Other (rn) Date of Service: Mar 23, 2025 Billing Provider: NAVEEN DEAL MD Common Visit Codes: [id number] INP/OBS CARE(HIGH) MAYORGA OSEAS Cullen Mar 23, 2025 11:53 NAVEEN DEAL MD Mar 24, 2025 22:39
[2025-03-24 01:00] VITALS: BP 109/78; PULSE 101; RESP 19; TEMP 97.6; O2SAT 94
[2025-03-24 05:00] VITALS: BP 116/82; PULSE 111; RESP 17; TEMP 98.1; O2SAT 95
[2025-03-24 09:00] VITALS: BP 136/87; PULSE 102; RESP 18; TEMP 97.9; O2SAT 97
[2025-03-24 12:57] VITALS: BP 120/95; PULSE 109; RESP 19; TEMP 97.8; O2SAT 97
[2025-03-24] MEDS ORDERED: fentaNYL CITRATE 100 MCG/2 ML VL ONE ×2 (15:14→16:24)
[2025-03-24] MEDS ORDERED: ePHEDrine SULFATE 50 MG/ML AMP ONE (15:58)
[2025-03-24] MEDS: IOHEXOL 300 MG/ML 100ML BOTTLE IJ ONE (16:11)
--- NOTE | 2025-03-24 16:25 | DVHNC2 ---
Procedure - OPERATIVE REPORT Pre-op. Diagnosis: Ureteral Stone - RIGHT Hydronephrosis - RIGHT Flank Pain - RIGHT Post-op. Diagnosis: Same as pre-op diagnosis Operation: Extracorporeal Shockwave Lithotripsy - RIGHT Cystoscopy, Ureteral stent placement - RIGHT Anesthesia: General Indications: Informed Consent: Options were discussed. Treatments can include conservative therapy, Extra-corporeal shockwave therapy (ESWL), Ureteroscopy with laser lithotripsy vs extraction, PCNL (percutaneous nephrolithotomy); with or without the use of Stents or retrograde pyelography. Corresponding advantages and disadvantages were also discussed. Questions were addressed. Patient wishes to proceed with right ESWL and cystoscopy with right ureteral stent placement. Risks and benefits of the surgery were reviewed with patient which include but are not limited to infection, bleeding, urosepsis, renal hemorrhage/hematoma formation, ureteral perforation, ureteral stricture formation and need for further surgery if stone does not break, ureteral obstruction from stone fragments, cardiac arrthymia and risks of anesthesia. Despite these risks, patient wishes to proceed with the surgery. Details of Procedure: Under satisfactory anesthesia, the patient was positioned on the lithotripsy table. Using fluoroscopy the stone was localized. Patient was then positioned in the dorsal lithotomy and cystoscopy was performed. The right ureteral orifice was cannulated with a sensoer tip guidewire and advanced into the right renal pelvis under fluroscopy. A 5x26 PL right Ureteral stent was then placed over the wire under Fluoroscopic and cystoscopic guidance. A good curl was seen in the kidney under fluorscopy and a good curl was seen in the bladder under direct visualization. The bladder was emptied and the cystoscope was taken out. We then positioned the patient accordingly, identified the stone and began extra-corporeal shockwave lithotripsy. Starting at low energy levels, shockwave treatment was commenced. The energy level was gradually increased and stone was fragmented. The patient was then taken off the lithotripsy table and sent to recovery room in stable condition. Specimens: None Complications: None Findings: Stone Laterality: Right Stone Location: distal ureteral stone, 9 mm Shocks Delivered: 3000 Max Power settin Fragmentation Quality: partial Ureteral stent size & length: [address] right ureteral stent Notes: Patient will need to undergo right URSLL with stent removal in 2-4 weeks MARY KAY GOTTI MD Mar 24, 2025 16:25
--- NOTE | 2025-03-24 17:02 | DVHPNRES ---
Progress Note Date Seen: Mar 24, 2025 Resident Creating Document: OSEAS DALE RESIDENT Has the PT tested + for MRSA If YES, has PT been informed?: No Medical Necessity Reason Pt with a Central, PICC or Fol: No Subjective Review of Systems Torrey Mack is a 54-year-old male with past medical history of hypertension, hyperlipidemia, anxiety, depression, kidney stones, Crohn's, tonsillectomy, and lithotripsy who presents to the ED with a blood pressure this morning, headache, nausea, abdominal discomfort, left hand tingling, neck pain, chills, and shoulder pain x1 day. Patient states that the headache is 4/10 pressure-like and constant. Patient states that he checks his blood pressure regularly and states that his systolics was over 220s this morning. He states that he checks it on a regimen and the [facility]. He states that he is compliant with his medications. He also states that he occasionally drinks, quit smoking, but does use marijuana. Patient also reported that his neck pain and shoulder pain has been going on for 1 month. He states that he had seen a chiropractor to get it adjusted with no relief. Patient's Alisa at the bedside. She also reported that the patient has been having abdominal discomfort for a month. Patient denies any chest pain, fever, recent injury or trauma, recent ingestion of spoiled food, recent sick contacts, recent travels, shortness of breath, vomiting, or diarrhea. Cardiovascular: HTN, hyperipidemia Psych: Anxiety, Depression Past Medical History Nephrolithiasis Crohn's disease Past Surgical History: Other (Lithotripsy), Tonsillectomy Family History: Cancer, Hypertension, Other (Dad with heart disease and hypertension. Mom with leukemia cancer.) Smoke: Quit ALCOHOL: occassional Drugs: Marijuana Lives: with Family Domestic Violence: Neg 03/21/25: BP is under control, possible sepsis due to nephrolithiasis and Moderate right hydronephrosis and hydroureter with obstructing calculus in the distal right ureter measuring up to 7 x 9 mm, urology consulted, Cystoscopy with right ureteral stent placement and right extracorporeal shockwave lithotripsy versus right ureteroscopic laser lithotripsy to be scheduled for 03/24/25, c5c6 stenosis will be f/u as outpatient, patient is being in inmunotherapy with rinvoq due to Chrons disease, pulmonary findings can be fu as outpatient since he doesnt have any respiratory symptoms 03/23/25 BP is under control, waiting for monday urology procedure 03/24/2025: successful lithotripsy and stent placement no complications Objective vital signs Vital Sign Date Time Temp Pulse Resp B/P (MAP) Pulse Ox O2 Delivery O2 Flow Rate FiO2 03/24/25 16:44 Mask 8.0 03/24/25 16:44 98.2 110 12 106/73 (84) 96 98.2 03/24/25 08:00 21 Total Intake and Output 03/23/25 03/23/25 03/24/25 15:00 23:00 07:00 Intake Total 500 ml 700 ml Balance 500 ml 700 ml medications Current Medications Medications Dose Ordered Sig/Delio Route Start Time Stop Time Status Last Admin Dose Admin Piperacillin Sod/ Tazobactam Sod 100 ml @ 25 mls/hr Q8HR IV 03/20/25 13:15 03/24/25 05:13 25 MLS/HR Acetaminophen 650 mg Q6HP PRN PO 03/20/25 13:15 Amlodipine Besylate 5 mg DAILY PO 03/21/25 10:00 03/24/25 09:15 5 MG Tamsulosin HCl 0.4 mg QPM PO 03/20/25 18:00 03/23/25 18:03 0.4 MG Patient Own Medication 1 tab DAILY PO 03/21/25 10:00 Pantoprazole Sodium 40 mg DAILY PO 03/21/25 10:00 03/24/25 09:14 40 MG Patient Own Medication 80 mg DAILY PO 03/21/25 10:00 Hold Atorvastatin Calcium 20 mg HS PO 03/20/25 22:00 03/23/25 21:55 20 MG Losartan Potassium 50 mg DAILY PO 03/21/25 10:00 03/24/25 09:15 50 MG Patient Own Medication 2 cap BIDWM PO 03/20/25 18:00 Lamotrigine 25 mg DAILY PO 03/21/25 10:00 03/24/25 09:15 25 MG Patient Own Medication 1 tab DAILY PO 03/21/25 10:00 Lorazepam 1 mg Q12HP PRN IV 03/21/25 17:15 03/23/25 22:02 1 MG Examination General Appearance: Alert, Oriented X3, Cooperative, mild distress HEENT: Atraumatic, PERRLA, EOMI, Mucous membr. moist/pink Respiratory: Normal air movement Cardiovascular: Normal S1, Normal S2 Abdominal: Normal bowel sounds, Soft Extremities: Normal pulses Skin: No significant lesion Neuro: Normal gait, Normal speech, Strength at 5/5 X4 ext, Normal tone, Sensation intact Psych/Mental Status: Mental status NL, Mood NL laboratory and microbiology Laboratory Tests 03/22/25 05:54 Test 03/22/25 05:54 Range/Units Serum Glucose 93 74-106 mg/dL Microbiology Date/Time Source Procedure Growth Status 03/20/25 13:12 Blood Blood Culture - Preliminary NO GROWTH AFTER 72 HOURS OF INCUBATION. 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 Plan Continue Antihypertensives PO IV antibiotics-Zosyn Beta-blockers given ED EKG noted Troponin negative x2 UA normal Lactic level trending Blood cultures pending Urine cultures pending CT head/neck/chest/abdomen and pelvis: normal head ct, neck stenosis c5c6, kidney stone with ureterohydronephrosis IV fluid bolus given Home medications reconciled DVT prophylaxis-not indicated patient ambulating PUD prophylaxis-PPIs Discussed plan of care with patient, patient's , and nurse Spinal consult: fu as outpatient Urology: successful lithotripsy and stent placement no complications Case discussed with Dr Caceres Full code Plan discussed with: Patient, Other Date of Service: Mar 24, 2025 Billing Provider: KAMRON CACERES MD Common Visit Codes: [id number] INP/OBS CARE(HIGH) OSEAS DALE RESIDENT Mar 24, 2025 17:02 KAMRON CACERES MD Mar 25, 2025 15:38
[2025-03-24] MEDS: ACETAMINOPHEN 325 MG TAB PO PRN (17:40)
[2025-03-24 20:00] VITALS: PULSE 117; RESP 18; O2SAT 96
[2025-03-24 21:00] VITALS: BP 128/101; PULSE 117; RESP 18; TEMP 98.8; O2SAT 96
[2025-03-24] MEDS ORDERED: HYDROcodone-ACET 5/325MG TAB PO PRN (21:30)
[2025-03-25 01:00] VITALS: BP 126/94; PULSE 80; RESP 18; TEMP 98.7; O2SAT 96
[2025-03-25 05:00] VITALS: BP 128/96; PULSE 79; RESP 18; TEMP 98.6; O2SAT 96
[2025-03-25 07:15] LABS: Basophils # (auto) 0 10 ^3/uL (0-0.2); Basophils % (auto) 0.4 % (0.0-2.0); Eosinophils # (auto) 0.1 10 ^3/uL (0-0.8); Eosinophils % (auto) 1.6 % (0.0-7.0); Hematocrit 43.3 % (41.0-53.0); Lymphocytes # (auto) 0.8 10 ^3/uL (0.4-5.4); Lymphocytes % (auto) 10.2 % (10.0-50.0); Mean Corpuscular Hgb Conc. 34.6 g/dL (32.0-36.0); Mean Corpuscular Volume 89.6 fL (80.0-100.0); Monocytes # (auto) 1.1 10 ^3/uL (0-1.3); Monocytes % (auto) 12.9 % (0.0-12.0); Neutrophils # (auto) 6.1 10 ^3/uL (1.6-8.6); Neutrophils % (auto) 74.9 % (37.0-80.0); Nucleated Red Blood Cells % 0.1 %; Platelet Count (auto) 249 10^3/uL (140-450); Red Blood Cells 4.83 10^6/uL (4.5-5.90); Red Cell Distribution Width 14.4 % (11.8-14.3); White Blood Cell 8.2 10^3/uL (4.4-10.8)
[2025-03-25 07:35] LABS: Albumin 4.6 g/dL (3.2-4.8); Alkaline Phosphatase 73 U/L (46-116); Anion Gap 9 (5-15); Aspartate Aminotransferase 29 U/L (13-40); BUN/Creatinine Ratio 11.6 (10.0-20.0); Blood Urea Nitrogen 13 mg/dL (9-23); Carbon Dioxide 29 mmol/L (20-31); Chloride 105 mmol/L (98-107); Glucose 93 mg/dL (74-106); Potassium 3.9 mmol/L (3.5-5.1); Sodium 143 mmol/L (136-145); Total Protein 6.7 g/dL (5.7-8.2)
[2025-03-25 07:36] LABS: Bilirubin, Total 0.8 mg/dL (0.2-1.0)
[2025-03-25 07:37] LABS: Alanine Aminotransferase 42 U/L (7-40)
[2025-03-25 08:00] VITALS: PULSE 66; RESP 18; O2SAT 96
[2025-03-25 09:00] VITALS: BP 128/87; PULSE 66; RESP 18; TEMP 98.4; O2SAT 96
[2025-03-25 12:45] VITALS: BP 121/86; PULSE 110; RESP 19; TEMP 98.4; O2SAT 95
[2025-03-25] MEDS ORDERED: ACET-1079 PO (15:41)
[2025-03-25] MEDS ORDERED: LEVO750T40 PO (15:41)
[2025-03-25] MEDS ORDERED: IBUP-1456 PO (15:41)
[2025-03-25 15:44] VITALS: BP 128/87; PULSE 105
--- NOTE | 2025-03-25 15:57 | DVHDSRES ---
Discharge Summary Date of Admission Resident Creating Document: OSEAS DALE RESIDENT Mar 20, 2025 at 13:03 Date of Discharge: Mar 25, 2025 Admitting Diagnosis #sp Extracorporeal Shockwave Lithotripsy - RIGHT #sp Cystoscopy, Ureteral stent placement - RIGHT Labs/Diagnostic Data: Laboratory Results Test 03/25/25 06:35 03/22/25 14:47 03/22/25 05:54 03/20/25 13:12 White Blood Count 8.2 10^3/uL (4.4-10.8) Red Blood Count 4.83 10^6/uL (4.5-5.90) Hemoglobin 15.0 g/dL (13.5-17.5) Hematocrit 43.3 % (41.0-53.0) Mean Corpuscular Volume 89.6 fL (80.0-100.0) Mean Corpuscular Hemoglobin 31.0 pg (28.0-32.0) Mean Corpuscular Hemoglobin Concent 34.6 g/dL (32.0-36.0) Red Cell Distribution Width 14.4 % (11.8-14.3) Platelet Count 249 10^3/uL (140-450) Mean Platelet Volume 8.8 fL (6.9-10.8) Neutrophils (%) (Auto) 74.9 % (37.0-80.0) Lymphocytes (%) (Auto) 10.2 % (10.0-50.0) Monocytes (%) (Auto) 12.9 % (0.0-12.0) Eosinophils (%) (Auto) 1.6 % (0.0-7.0) Basophils (%) (Auto) 0.4 % (0.0-2.0) Neutrophils # (Auto) 6.1 10 ^3/uL (1.6-8.6) Lymphocytes # (Auto) 0.8 10 ^3/uL (0.4-5.4) Monocytes # (Auto) 1.1 10 ^3/uL (0-1.3) Eosinophils # (Auto) 0.1 10 ^3/uL (0-0.8) Basophils # (Auto) 0 10 ^3/uL (0-0.2) Nucleated Red Blood Cells 0.1 % Sodium Level 143 mmol/L (136-145) Potassium Level 3.9 mmol/L (3.5-5.1) Chloride Level 105 mmol/L (98-107) Carbon Dioxide Level 29 mmol/L (20-31) Anion Gap 9 (5-15) Blood Urea Nitrogen 13 mg/dL (9-23) Creatinine 1.12 mg/dL (0.700-1.30) Glomerular Filtration Rate Calc 78 mL/min (>90) BUN/Creatinine Ratio 11.6 (10.0-20.0) Serum Glucose 93 mg/dL (74-106) Calcium Level 10.0 mg/dL (8.7-10.4) Total Bilirubin 0.8 mg/dL (0.2-1.0) Aspartate Amino Transferase (AST) 29 U/L (13-40) Alanine Aminotransferase (ALT) 42 U/L (7-40) Alkaline Phosphatase 73 U/L (46-116) Total Protein 6.7 g/dL (5.7-8.2) Albumin 4.6 g/dL (3.2-4.8) Prothrombin Time 11.1 sec (9.3-11.8) Prothrombin Time INR 1.05 (0.9-1.15) Activated Partial Thromboplast Time 28.9 SEC (24.5-34.5) Lactic Acid Level 1.0 mmol/L (0.4-2.0) Troponin I High Sensitivity 13 ng/L (</=54) Test 03/20/25 11:55 Urine Color Colorless (Yellow) Urine Clarity Clear (Clear) Urine pH 5.0 (5.0-9.0) Urine Specific Noble 1.006 (1.001-1.035) Urine Protein Negative (Negative) Urine Ketones Negative (Negative) Urine Blood Negative /uL (Negative) Urine Nitrite Negative (Negative) Urine Bilirubin Negative (Negative) Urine Urobilinogen Normal mg/dL (Negative) Urine Leukocyte Esterase Negative /uL (Negative) Urine RBC <1 /hpf (0 - 3) Urine Microscopic WBC 1 /HPF (0-3) Urine Squamous Epithelial Cells None seen /hpf (<5) Urine Bacteria None seen /hpf (None Seen) Urine Glucose Normal mg/dL (Normal) Urine Opiates Screen Neg (NEGATIVE) Urine Fentanyl Screen Neg (NEGATIVE) Urine Barbiturates Screen Neg (NEGATIVE) Urine Phencyclidine Screen Neg (NEGATIVE) Urine Amphetamines Screen Neg (NEGATIVE) Urine Benzodiazepines Screen Neg (NEGATIVE) Urine Cocaine Screen Neg (NEGATIVE) Urine Cannabinoids Screen Pos (NEGATIVE) Other Laboratory Tests 03/25/25 06:35 Brief Hx & Hospital Course: A 54-year-old male with a PMHx of hypertension, hyperlipidemia, anxiety, depression, nephrolithiasis, Crohn's disease on immunotherapy, and remote tonsillectomy/lithotripsy presented to the ED with hypertensive urgency (BP >220 systolic), headache, nausea, abdominal discomfort, and neck/shoulder pain ongoing for one month. He also endorsed left hand tingling and chronic pain, occasionally uses marijuana, and has a history of alcohol and tobacco use. Admission workup revealed obstructing right distal ureteral calculus (7x9 mm) with moderate right hydronephrosis and hydroureter, treated with cystoscopy, right ureteral stent placement, and extracorporeal shockwave lithotripsy. Imaging also showed ground-glass opacities with tree-in-bud nodularity in the right lung, likely infectious/inflammatory, and mild spinal canal stenosis at C5-C6. UA and blood cultures were obtained; troponins were negative x2. He was started on IV Zosyn and antihypertensives. Patients hypertensive urgency, headache, and abdominal symptoms resolved with treatment. Pain was discussed with spinal surgeryhe will follow up outpatient. No complications post-procedure. Discharge Plan: Continue PO antihypertensives Outpatient follow-up with PCP and Urology Spinal surgery to follow-up outpatient Resume home Crohns immunotherapy Discussed care plan with patient and family Discharged in stable condition. Case discussed with Dr Caceres Full code Consults/Reason for consult Urology due to large kidney stone Spinal surgery due to CT findings Operations or Procedures OPERATIVE REPORT Pre-op. Diagnosis: Ureteral Stone - RIGHT Hydronephrosis - RIGHT Flank Pain - RIGHT Post-op. Diagnosis: Same as pre-op diagnosis Operation: Extracorporeal Shockwave Lithotripsy - RIGHT Cystoscopy, Ureteral stent placement - RIGHT Anesthesia: General Indications: Informed Consent: Options were discussed. Treatments can include conservative therapy, Extra-corporeal shockwave therapy (ESWL), Ureteroscopy with laser lithotripsy vs extraction, PCNL (percutaneous nephrolithotomy); with or without the use of Stents or retrograde pyelography. Corresponding advantages and disadvantages were also discussed. Questions were addressed. Patient wishes to proceed with right ESWL and cystoscopy with right ureteral stent placement. Risks and benefits of the surgery were reviewed with patient which include but are not limited to infection, bleeding, urosepsis, renal hemorrhage/hematoma formation, ureteral perforation, ureteral stricture formation and need for further surgery if stone does not break, ureteral obstruction from stone fragments, cardiac arrthymia and risks of anesthesia. Despite these risks, patient wishes to proceed with the surgery. Details of Procedure: Under satisfactory anesthesia, the patient was positioned on the lithotripsy table. Using fluoroscopy the stone was localized. Patient was then positioned in the dorsal lithotomy and cystoscopy was performed. The right ureteral orifice was cannulated with a sensoer tip guidewire and advanced into the right renal pelvis under fluroscopy. A 5x26 PL right Ureteral stent was then placed over the wire under Fluoroscopic and cystoscopic guidance. A good curl was seen in the kidney under fluorscopy and a good curl was seen in the bladder under direct visualization. The bladder was emptied and the cystoscope was taken out. We then positioned the patient accordingly, identified the stone and began extra-corporeal shockwave lithotripsy. Starting at low energy levels, shockwave treatment was commenced. The energy level was gradually increased and stone was fragmented. The patient was then taken off the lithotripsy table and sent to recovery room in stable condition. Specimens: None Complications: None Findings: Stone Laterality: Right Stone Location: distal ureteral stone, 9 mm Shocks Delivered: 3000 Max Power settin Fragmentation Quality: partial Ureteral stent size & length: [address] right ureteral stent Notes: Patient will need to undergo right URSLL with stent removal in 2-4 weeks Condition at Discharge: Stable Final Diagnosis/Problems List #sp Extracorporeal Shockwave Lithotripsy - RIGHT #sp Cystoscopy, Ureteral stent placement - RIGHT #Hypertensive urgency resolved #Intractable headache with left hand tingling resolving #Intractable neck and shoulder pain resolving #Sepsis due to nephrolithiasis and Moderate right hydronephrosis and hydroureter with obstructing calculus in the distal right ureter measuring up to 7 x 9 mm #Hypercalcemia #Chrons disease in immunotherapy #Cervical degenerative disc disease with mild spinal canal stenosis significant left neural foraminal stenosis at C5-C6 #History of hypertension #History of hyperlipidemia #History of anxiety #History of depression #History of nephrolithiasis #Alcohol use #Ex-smoker #Marijuana use #Mild paranasal sinus disease #Tonsillar hypertrophy #Ground-glass opacity with diffuse micronodularity including tree-in-bud nodularity in the right lung, likely infectious / inflammatory. Discharge Disposition: Home Discharge Instruct/Medications Diet: Consistent carbohydrate, Cardiac 2g Na,low cholest Activity: No Restrictions, As Tolerated Follow Up/Referral: dr costa, urologist, in 2 weeks Medications: see prescription Discharge Statement: "Patient was advised to return to the ER or call 911 if any headaches, dizziness, shortness of breath, chest pain, abdominal pain, bleeding, fevers, or worsening of medical condition. Patient was counseled about treatment plan, medications, possible side effects, patientverbalized understanding. All questions were answered to the best of my ability. This discharge took greater then 30 minutes in planning, reviewing documentation, counseling the patient, and discussing with other team members." ASSESSMENT ASSESSMENT Assessment sp lithothrypsy + ureteral stent Date of Service: Mar 25, 2025 Billing Provider: KAMRON CACERES MD Common Visit Codes: 91690-GRU/OBS DISCH DAY >30min OSEAS DALE RESIDENT Mar 25, 2025 15:57 KAMRON CACERES MD Mar 27, 2025 12:27
== END 2025-03-25 18:00 | disposition home or self-care (01) | DRG 854 ==
LOC: ER 09:25 → OVERFLOW 13:03 → TELE-WESTW 17:51 → WEST WING 03-21 22:12
PROVIDERS: ADMIT Student in an Organized Health Care Education/Training Program; ATTEND Emergency Medicine
PROC: 0TF6XZZ Fragmentation in Right Ureter, External Approach (ICD-10-PCS; principal; 2025-03-24 15:29)
PROC: 0T768DZ Dilation of Right Ureter with Intraluminal Device, Via Natural or Artificial Opening Endoscopic (ICD-10-PCS; 2025-03-24 15:29)
DX: A41.9 Sepsis, unspecified organism (principal); I16.1 Hypertensive emergency; K50.90 Crohn's disease, unspecified, without complications; N13.2 Hydronephrosis with renal and ureteral calculous obstruction; E83.52 Hypercalcemia; R00.0 Tachycardia, unspecified; M54.9 Dorsalgia, unspecified; F12.90 Cannabis use, unspecified, uncomplicated; I10 Essential (primary) hypertension; F32.A Depression, unspecified; F41.9 Anxiety disorder, unspecified; E78.5 Hyperlipidemia, unspecified; M48.02 Spinal stenosis, cervical region; M50.322 Other cervical disc degeneration at C5-C6 level; J35.1 Hypertrophy of tonsils; Z88.8 Allergy status to other drugs, medicaments and biological substances; Z79.899 Other long term (current) drug therapy; Z87.442 Personal history of urinary calculi; Z82.49 Family history of ischemic heart disease and other diseases of the circulatory system; Z90.49 Acquired absence of other specified parts of digestive tract; Z80.6 Family history of leukemia; Z87.891 Personal history of nicotine dependence
CPT/HCPCS: 36415; 70450; 70490; 71045; 71250; 74176; 80048; 80053; 80307; 81001; 83605; 84484; 85025; 85610; 85730; 86850; 86900; 86901; 87040; 87086; 93005; 96361; 96365; 99291; 99292; G0378; J2543

== ENCOUNTER 2025-09-09 14:53 | Emergency (ER) | payer OTHER, MEDICARE, BC ==
[~2025-09-09 14:53] MED LIST changes: +ACET-1079 PO; +ATOR20TA50 PO; +IBUP-1456 PO; +ICOS1CAP3 PO; +LAMO25TA27 PO; +LEVO750T40 PO; +LOSA-534 PO; +UPAD30TA PO
== END 2025-09-09 14:54 | disposition left against medical advice (07) ==
LOC: ER 14:53
DX: I10 Essential (primary) hypertension (principal); Z53.21 Procedure and treatment not carried out due to patient leaving prior to being seen by health care provider